=== PATIENT | female | born 1950 | race Caucasian/White ===

== ENCOUNTER → 2018-06-30 10:47 | Outpatient (BNVA) | payer MEDICARE, BC, SELFPAY | PROVIDERS: PCP Family Medicine; Referring Provider Family Medicine; Visit Provider Student in an Organized Health Care Education/Training Program | DX: M70.61 Trochanteric bursitis, right hip (principal); E11.9 Type 2 diabetes mellitus without complications; Z79.84 Long term (current) use of oral hypoglycemic drugs | CPT/HCPCS: 99203; 99214 ==

== ENCOUNTER → 2018-08-28 10:07 | Outpatient (BNVA) | payer MEDICARE, BC, SELFPAY | PROVIDERS: PCP Family Medicine; Referring Provider Family Medicine; Visit Provider Student in an Organized Health Care Education/Training Program | DX: M70.61 Trochanteric bursitis, right hip (principal); E11.9 Type 2 diabetes mellitus without complications; Z79.84 Long term (current) use of oral hypoglycemic drugs | CPT/HCPCS: 99213 ==

== ENCOUNTER 2018-09-20 09:40 | Outpatient (CLI) | payer MEDICARE, BC, SELFPAY ==
[2018-09-20 11:40] LABS: Hemoglobin A1C 6.4 % (4.5-6.2)
[2018-09-20 11:46] LABS: ALT 39 U/L (12-78); AST 25 U/L (15-37); Albumin 3.3 g/dL (3.4-5.0); Alkaline Phosphatase 45 U/L (46-116); Anion Gap 9.4 mmol/L (3-11); BUN 19 mg/dL (7-18); Bilirubin, Total 0.3 mg/dL (0.2-1.0); CO2 28.6 mmol/L (21.0-32.0); CREATININE 0.79 mg/dL (0.55-1.02); Calcium 8.6 mg/dL (8.5-10.1); Chloride 103 mmol/L (98-107); Glucose 122 mg/dL (70-100); Potassium 4.2 mmol/L (3.5-5.1); Sodium 141 mmol/L (136-145); TSH 1.11 uIU/mL (0.358-3.74); Total Protein 6.8 g/dL (6.4-8.2)
[2018-09-20 12:06] LABS: Iron 111 ug/dL (50-175); Total Iron Binding Capacity 298 ug/dL (250-450); Transferrin Sat 37 % (15-50)
== END 2018-09-20 10:00 ==
PROVIDERS: PCP Family Medicine; Visit Provider Family Medicine
DX: E03.9 Hypothyroidism, unspecified (principal); R53.83 Other fatigue; K21.9 Gastro-esophageal reflux disease without esophagitis; R73.9 Hyperglycemia, unspecified; K62.5 Hemorrhage of anus and rectum
CPT/HCPCS: 36415; 80053; 83036; 83540; 83550; 84443

== ENCOUNTER 2018-10-11 21:12 | Emergency (ER) | payer MEDICARE, BC, SELFPAY ==
[2018-10-11 21:18] VITALS: BP 158/74; PULSE 88; RESP 16; TEMP 36.6; O2SAT 97
[2018-10-11 21:22] VITALS: O2SAT 96
--- NOTE | 2018-10-11 21:30 | W.ED.GENAD ---
Discharge Plan Disposition Patient Disposition: HOME Condition: Stable Discharge Details Chief Complaint: GenMedical Clinical Impression: Headache Primary Care Provider: Sherri Mera ED Provider: Jose Angel Bolanos Home Meds and New Rx's Prescriptions: No Action omeprazole 20 mg capsule,delayed release(DR/EC) 20 mg PO DAILY Qty: 90 RF: 2 aspirin [Aspir-81] 81 MG tablet,delayed release (DR/EC) 81 mg PO DAILY RF: 0 Co Q-10 (with Vit E) 1 EACH capsule 1 ea PO DAILY RF: 0 omega-3 fatty acids-fish oil 1 EACH capsule PO BID RF: 0 [id number] 1 EACH tablet 1 ea PO DAILY RF: 0 calcium citrate-vitamin D3 1 EACH tablet 2 ea PO DAILY RF: 0 Blood-Glucose Meter [Blood Glucose Monitor] 1 EACH EACH 1 ea Miscellaneous ONCE Qty: 1 RF: 0 metformin 500 MG tablet 500 mg PO DAILY Qty: 90 RF: 4 pravastatin 20 MG tablet 20 mg PO DAILY Qty: 90 RF: 4 levothyroxine 50 MCG tablet 50 mcg PO DAILY Qty: 90 RF: 4 multivitamin with minerals [One Daily Complete] 1 EACH tablet 1 ea PO DAILY RF: 0 Blood Glucose Test strip 1 ea Miscellaneous DAILY Qty: 100 RF: 2 lancets 28 gauge misc 1 ea Miscellaneous DAILY Qty: 100 RF: 2 ibandronate 150 mg tablet 150 mg PO monthly Qty: 3 RF: 4 Discharge Instructions Instructions: General Headache (ED) Additional Instructions: your cat scan did not show any concerning finding you can take 1000mg tylenol and 600mg ibuprofen every 6 hours for pain as needed follow up with your primary care provider within 1-2 weeks if symptoms continue if you have severe worsening of pain that doesn't improve, or you have fevers with neck stiffness Medical Decision Making 68 yo female who denies hx of headaches or migraines comes in with headache. She was shoveling about 45 minutes ago when she had acute onset of frontal headache. It was a 45/10 on pain scale per pt, is now 2/10 without pain medication. Denies fevers, neck stiffness, weakness, vision changes, falls. She has no focal neuro deficits, CN II-XII are intact, NIH 0. normal palpation of eyes with no hardness so doubt glaucoma and eye appears normal. No temporal artery pain to suggest temporal arteritis. no fevers or meningismus so doubt meningitis. Given pain is within [address] head to eval for sah and sdh though could be tension headache given pain is now resolving pt remains pain free. CT negative. Given she is here within 6 hours do not feel LP to rule out SAH indicated. Will d/c and return precautions given Differential Diagnosis tension headache, sah, sdh Imaging Data Radiologic Study: Attestation: I personally reviewed and interpreted this imaging study as follows: Imaging: CT Scan Radiologist's impression: no acute findings HPI General Mode of arrival: ambulatory. Date/Time Provider Initiated Documentation: 10/11/18 21:25. Limitations to Documentation: no limitations. Information obtained by: patient. History of Present Illness 68 year old F presents to the emergency department with the chief complaint of headache, described as severe, with intensity rated at 10. Quality is described as sharp, and is localized to the head. Patient reports no radiation. Patient started experiencing this minute(s) (30) and it has been other (improving). No relieving factors improve symptom(s), No exacerbating factors reported . Patient notes no other symptoms.. Patient did receive the following treatments prior to arrival, none Related Data Home Medications Medication Instructions Recorded Confirmed aspirin [Aspir 81] 81 mg PO DAILY tab-cap 08/14/13 10/11/18 coenzyme [id number] E [Co Q-10 50 1 ea PO DAILY 08/14/13 10/11/18 Mg Softgel] [id number]-C-alfonso-bosw 1 ea PO DAILY 08/14/13 10/11/18 omega-3 fatty acids-fish oil 0 ea PO BID 08/14/13 10/11/18 calcium citrate-vitamin D3 2 ea PO DAILY 08/27/13 10/11/18 levothyroxine 50 mcg PO DAILY #90 tab-cap 08/18/17 10/11/18 metformin 500 mg PO DAILY #90 tab-cap 08/18/17 10/11/18 pravastatin 20 mg PO DAILY #90 tab-cap 08/18/17 10/11/18 multivitamin with minerals [One 1 ea PO DAILY 02/13/18 10/11/18 Daily Complete] blood sugar diagnostic strips #100 strip 11/05/18 12/26/18 lancets 28 gauge #100 ea 08/07/18 09/27/18 omeprazole 20 mg capsule,delayed 20 mg PO DAILY #90 cap 09/20/18 10/11/18 release ibandronate 150 mg tablet 150 mg PO monthly #3 tab-cap 10/09/18 10/11/18 Previous Rx's Medication Instructions Recorded levothyroxine 50 mcg PO DAILY #90 tab-cap 08/18/17 metformin 500 mg PO DAILY #90 tab-cap 08/18/17 pravastatin 20 mg PO DAILY #90 tab-cap 08/18/17 blood sugar diagnostic strips #100 strip 08/07/18 lancets 28 gauge #100 ea 08/07/18 omeprazole 20 mg capsule,delayed 20 mg PO DAILY #90 cap 09/20/18 release ibandronate 150 mg tablet 150 mg PO monthly #3 tab-cap 10/09/18 Allergies Allergy/AdvReac Type Severity Reaction Status Date / Time latex Allergy Intermediate Unverified 10/11/18 21:24 codeine AdvReac Unknown Unverified 10/11/18 21:24 pseudoephedrine AdvReac Unknown DIZZINESS; Unverified 10/11/18 21:24 LIGHTHEADEDNESS ANIMAL DANDER Allergy Intermediate Uncoded 10/11/18 21:24 General Stated Complaint: GenMedical LAVERN: 3 Review of Systems Review of Systems All systems reviewed & are unremarkable except as noted in HPI and below Constitutional Denies chills, Denies fever(s) and Denies weakness Eyes Denies loss of vision ENT Denies change in voice Cardiovascular Denies chest pain and Denies dyspnea Respiratory Denies dyspnea Gastrointestinal Denies abdominal pain, Denies nausea and Denies vomiting Musculoskeletal Denies joint swelling Integumentary/Breasts Denies rash Neurologic Denies loss of vision and Denies weakness Psychiatric Denies depression Endocrine Denies heat intolerance Allergic/Immunologic Denies urticaria [facility] Medical History Type 2 diabetes mellitus without complication, without long-term current use of insulin (Chronic 12/21/16) Osteoporosis (Chronic 12/21/16) Non-alcoholic fatty liver disease (Chronic 08/23/13) Hypothyroidism (Chronic 08/23/13) Generalized osteoarthritis (Chronic 08/23/13) Gastroesophageal reflux disease (Chronic 08/23/13) Asthma (Chronic) Surgical History Extraction of cataract Fracture, Closed Treatment (~07/2004) Family History FAMILY HX Neoplasm Mother Essential hypertension Heart disease Hyperlipidemia Neoplasm Father Essential hypertension Heart disease Hyperlipidemia Neoplasm Sister Essential hypertension Depression Hyperlipidemia Brother Depression Heart disease Hyperlipidemia Grandfather No problems noted. Grandfather Parkinson disease Grandmother Diabetes Heart disease Stroke Grandmother Diabetes Heart disease Social History Smoking/Tobacco Use Status: Never Exam Const General: no acute distress Orientation: alert HENMT Head: normal to inspection Ears: external ears normal General nose exam: external nose normal Mouth: moist mucous membranes Eyes General: appearance normal, both eyes and all related structures Neck Neck: normal visual inspection Resp Effort & Inspection: normal respiratory effort and able to speak in complete sentences Cardio Rate: regular rate Skin General skin exam: no rashes or lesions noted Neuro General: alert and oriented x3 Extrem General: normal to inspection Psych Mental Status: mental status grossly normal Course Vital Signs Temperature 36.6 C 10/11/18 21:18 Pulse 88 10/11/18 21:18 Respiratory Rate 16 10/11/18 21:18 Blood Pressure 158/74 H 10/11/18 21:18 Pulse Oximetry 97 10/11/18 21:18 Temperature 36.6 C 10/11/18 21:18 Temperature Source Skin 10/11/18 21:18 Pulse 88 10/11/18 21:18 Respiratory Rate 16 10/11/18 21:18 Respiratory Effort Non-Labored 10/11/18 21:21 Blood Pressure 158/74 H 10/11/18 21:18 Blood Pressure Position Sitting 10/11/18 21:18 Pulse Oximetry 97 10/11/18 21:18 Oxygen Delivery Method Room Air 10/11/18 21:18 Oxygen Flow Rate 0 10/11/18 21:18 Pain Level 3 10/11/18 21:18
[2018-10-11] MEDS: Acetaminophen 500 MG TAB 1000 MG PO (21:34)
--- NOTE | 2018-10-11 21:34 | ED.GENADUL_ITS ---
Discharge Plan Disposition Patient Disposition: HOME Condition: Stable Discharge Details Chief Complaint: GenMedical Clinical Impression: Headache Primary Care Provider: Sherri Mera ED Provider: Jose Angel Bolanos Home Meds and New Rx's Prescriptions: No Action omeprazole 20 mg capsule,delayed release(DR/EC) 20 mg PO DAILY Qty: 90 RF: 2 aspirin [Aspir-81] 81 MG tablet,delayed release (DR/EC) 81 mg PO DAILY RF: 0 Co Q-10 (with Vit E) 1 EACH capsule 1 ea PO DAILY RF: 0 omega-3 fatty acids-fish oil 1 EACH capsule PO BID RF: 0 [id number]-[id number]-C-alfonso-bosw 1 EACH tablet 1 ea PO DAILY RF: 0 calcium citrate-vitamin D3 1 EACH tablet 2 ea PO DAILY RF: 0 Blood-Glucose Meter [Blood Glucose Monitor] 1 EACH EACH 1 ea Miscellaneous ONCE Qty: 1 RF: 0 metformin 500 MG tablet 500 mg PO DAILY Qty: 90 RF: 4 pravastatin 20 MG tablet 20 mg PO DAILY Qty: 90 RF: 4 levothyroxine 50 MCG tablet 50 mcg PO DAILY Qty: 90 RF: 4 multivitamin with minerals [One Daily Complete] 1 EACH tablet 1 ea PO DAILY RF: 0 Blood Glucose Test strip 1 ea Miscellaneous DAILY Qty: 100 RF: 2 lancets 28 gauge misc 1 ea Miscellaneous DAILY Qty: 100 RF: 2 ibandronate 150 mg tablet 150 mg PO monthly Qty: 3 RF: 4 Discharge Instructions Instructions: General Headache (ED) Additional Instructions: your cat scan did not show any concerning finding you can take 1000mg tylenol and 600mg ibuprofen every 6 hours for pain as needed follow up with your primary care provider within 1-2 weeks if symptoms continue if you have severe worsening of pain that doesn't improve, or you have fevers with neck stiffness Medical Decision Making 68 yo female who denies hx of headaches or migraines comes in with headache. She was shoveling about 45 minutes ago when she had acute onset of frontal headache. It was a 45/10 on pain scale per pt, is now 2/10 without pain medication. Denies fevers, neck stiffness, weakness, vision changes, falls. She has no focal neuro deficits, CN II-XII are intact, NIH 0. normal palpation of eyes with no hardness so doubt glaucoma and eye appears normal. No temporal artery pain to suggest temporal arteritis. no fevers or meningismus so doubt meningitis. Given pain is within [address] head to eval for sah and sdh though could be tension headache given pain is now resolving pt remains pain free. CT negative. Given she is here within 6 hours do not feel LP to rule out SAH indicated. Will d/c and return precautions given Differential Diagnosis tension headache, sah, sdh Imaging Data Radiologic Study: Attestation: I personally reviewed and interpreted this imaging study as follows: Imaging: CT Scan Radiologist's impression: no acute findings HPI General Mode of arrival: ambulatory . Date/Time Provider Initiated Documentation: 10/11/18 21:25 . Limitations to Documentation: no limitations . Information obtained by: patient . History of Present Illness 68 year old F presents to the emergency department with the chief complaint of headache, described as severe, with intensity rated at 10. Quality is described as sharp, and is localized to the head. Patient reports no radiation. Patient started experiencing this minute(s) (30) and it has been other (improving). No relieving factors improve symptom(s), No exacerbating factors reported . Patient notes no other symptoms.. Patient did receive the following treatments prior to arrival, none Related Data Home Medications Medication Instructions Recorded Confirmed aspirin [Aspir 81] 81 mg PO DAILY tab-cap 08/14/13 10/11/18 coenzyme [id number] E [Co Q-10 50 1 ea PO DAILY 08/14/13 10/11/18 Mg Softgel] [id number]-[id number]-C-alfonso-bosw 1 ea PO DAILY 08/14/13 10/11/18 omega-3 fatty acids-fish oil 0 ea PO BID 08/14/13 10/11/18 calcium citrate-vitamin D3 2 ea PO DAILY 08/27/13 10/11/18 levothyroxine 50 mcg PO DAILY #90 tab-cap 08/18/17 10/11/18 metformin 500 mg PO DAILY #90 tab-cap 08/18/17 10/11/18 pravastatin 20 mg PO DAILY #90 tab-cap 08/18/17 10/11/18 multivitamin with minerals [One 1 ea PO DAILY 02/13/18 10/11/18 Daily Complete] blood sugar diagnostic strips #100 strip 11/05/18 12/26/18 lancets 28 gauge #100 ea 08/07/18 09/27/18 omeprazole 20 mg capsule,delayed 20 mg PO DAILY #90 cap 09/20/18 10/11/18 release ibandronate 150 mg tablet 150 mg PO monthly #3 tab-cap 10/09/18 10/11/18 Previous Rx's Medication Instructions Recorded levothyroxine 50 mcg PO DAILY #90 tab-cap 08/18/17 metformin 500 mg PO DAILY #90 tab-cap 08/18/17 pravastatin 20 mg PO DAILY #90 tab-cap 08/18/17 blood sugar diagnostic strips #100 strip 08/07/18 lancets 28 gauge #100 ea 08/07/18 omeprazole 20 mg capsule,delayed 20 mg PO DAILY #90 cap 09/20/18 release ibandronate 150 mg tablet 150 mg PO monthly #3 tab-cap 10/09/18 Allergies Allergy/AdvReac Type Severity Reaction Status Date / Time latex Allergy Intermediate Unverified 10/11/18 21:24 codeine AdvReac Unknown Unverified 10/11/18 21:24 pseudoephedrine AdvReac Unknown DIZZINESS; Unverified 10/11/18 21:24 LIGHTHEADEDNESS ANIMAL DANDER Allergy Intermediate Uncoded 10/11/18 21:24 General Stated Complaint: GenMedical LAVERN: 3 Review of Systems Review of Systems All systems reviewed & are unremarkable except as noted in HPI and below Constitutional Denies chills, Denies fever(s) and Denies weakness Eyes Denies loss of vision ENT Denies change in voice Cardiovascular Denies chest pain and Denies dyspnea Respiratory Denies dyspnea Gastrointestinal Denies abdominal pain, Denies nausea and Denies vomiting Musculoskeletal Denies joint swelling Integumentary/Breasts Denies rash Neurologic Denies loss of vision and Denies weakness Psychiatric Denies depression Endocrine Denies heat intolerance Allergic/Immunologic Denies urticaria [facility] Medical History Type 2 diabetes mellitus without complication, without long-term current use of insulin (Chronic 12/21/16) Osteoporosis (Chronic 12/21/16) Non-alcoholic fatty liver disease (Chronic 08/23/13) Hypothyroidism (Chronic 08/23/13) Generalized osteoarthritis (Chronic 08/23/13) Gastroesophageal reflux disease (Chronic 08/23/13) Asthma (Chronic) Surgical History Extraction of cataract Fracture, Closed Treatment (~07/2004) Family History FAMILY HX Neoplasm Mother Essential hypertension Heart disease Hyperlipidemia Neoplasm Father Essential hypertension Heart disease Hyperlipidemia Neoplasm Sister Essential hypertension Depression Hyperlipidemia Brother Depression Heart disease Hyperlipidemia Grandfather No problems noted. Grandfather Parkinson disease Grandmother Diabetes Heart disease Stroke Grandmother Diabetes Heart disease Social History Smoking/Tobacco Use Status: Never Exam Const General: no acute distress Orientation: alert HENMT Head: normal to inspection Ears: external ears normal General nose exam: external nose normal Mouth: moist mucous membranes Eyes General: appearance normal, both eyes and all related structures Neck Neck: normal visual inspection Resp Effort & Inspection: normal respiratory effort and able to speak in complete sentences Cardio Rate: regular rate Skin General skin exam: no rashes or lesions noted Neuro General: alert and oriented x3 Extrem General: normal to inspection Psych Mental Status: mental status grossly normal Course Vital Signs Temperature 36.6 C 10/11/18 21:18 Pulse 88 10/11/18 21:18 Respiratory Rate 16 10/11/18 21:18 Blood Pressure 158/74 H 10/11/18 21:18 Pulse Oximetry 97 10/11/18 21:18 Temperature 36.6 C 10/11/18 21:18 Temperature Source Skin 10/11/18 21:18 Pulse 88 10/11/18 21:18 Respiratory Rate 16 10/11/18 21:18 Respiratory Effort Non-Labored 10/11/18 21:21 Blood Pressure 158/74 H 10/11/18 21:18 Blood Pressure Position Sitting 10/11/18 21:18 Pulse Oximetry 97 10/11/18 21:18 Oxygen Delivery Method Room Air 10/11/18 21:18 Oxygen Flow Rate 0 10/11/18 21:18 Pain Level 3 10/11/18 21:18
--- NOTE | 2018-10-11 21:55 | DI.CT_ITS ---
SYMPTOMS/DIAGNOSIS: HEADACHE NONCONTRAST HEAD CT: No intracranial hemorrhage or skull fracture is seen. There is no evidence of mass or infarct. There is minimal atrophy. There are no visible white matter changes. The ventricles are normal in size. 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 The dens articulates with the inferior aspect of the clivus. There is no evidence of impression on the medulla or upper cervical cord. The sinuses and mastoid air cells appear clear. 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 No acute intracranial abnormality is seen.
[2018-10-11 21:56] VITALS: RESP 16
--- NOTE | 2018-10-11 22:26 | DI.VRAD_ITS ---
EXAM: CT Head Without Contrast EXAM DATE/TIME: 10/11/2018 9:30 PM CLINICAL HISTORY: 68 years old, female; Pain; Headache TECHNIQUE: Axial computed tomography images of the head/brain without contrast. Coronal and sagittal reformatted images were created and reviewed. COMPARISON: No relevant prior studies available. FINDINGS: Brain: No acute intracranial hemorrhage, mass-effect, midline shift, or extra-axial collection is seen. The blackwell white matter differentiation appears preserved. Ventricles: The ventricular system and basilar cisterns appear appropriate in size and configuration. Bones/joints: The bony calvarium appears intact. No depressed skull fracture is seen. There is variant anatomy at the occipitocervical junction. C1 appears to be largely fused to the skull base. 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 There is associated central canal narrowing at this level and mild deformity of the upper cervical cord, image 7 of series 2. Sinuses: The visualized paranasal sinuses appear clear. Mastoid air cells: The mastoid air cells appear clear. Auditory system: The middle ear cavities appear clear. Orbits: The globes and intraorbital structures appear grossly intact. Soft tissues: No significant scalp lesion is demonstrated. IMPRESSION: 1. No acute intracranial abnormality seen. 2. Unusual anatomy at the craniocervical junction with apparent fusion of the ring of C1 to the skull base, deformity of the odontoid process of C2, and central canal narrowing with mild deformity of the upper cervical cord. Dictated and Authenticated by: Hebert Johnson MD. Ordering:MORGAN Walter MD
[2018-10-11 22:41] VITALS: BP 145/82; PULSE 71; RESP 16; TEMP 36.7; O2SAT 96
[2018-10-11 22:48] VITALS: BP 145/82; PULSE 71; RESP 16; TEMP 36.7; O2SAT 96
== END 2018-10-11 22:47 | disposition home or self-care (01) ==
PROVIDERS: Emergency Provider Emergency Medicine; PCP Family Medicine
DX: R51 Headache (principal); E11.9 Type 2 diabetes mellitus without complications; Z79.84 Long term (current) use of oral hypoglycemic drugs
CPT/HCPCS: 99284; 70450

== ENCOUNTER 2019-02-09 08:53 | Outpatient (CLI) | payer MEDICARE, BC, SELFPAY ==
[2019-02-09 10:42] LABS: ALT 34 U/L (12-78); AST 24 U/L (15-37); Albumin 3.2 g/dL (3.4-5.0); Alkaline Phosphatase 50 U/L (46-116); Anion Gap 9.9 mmol/L (3-11); BUN 15 mg/dL (7-18); Bilirubin, Total 0.5 mg/dL (0.2-1.0); CO2 27.1 mmol/L (21.0-32.0); CREATININE 0.74 mg/dL (0.55-1.02); Calcium 8.3 mg/dL (8.5-10.1); Chloride 107 mmol/L (98-107); Glucose 112 mg/dL (70-100); Potassium 4.3 mmol/L (3.5-5.1); Sodium 144 mmol/L (136-145); Total Protein 6.7 g/dL (6.4-8.2)
[2019-02-09 10:47] LABS: Microalb ug/mg Crea 6.4 ug/mg Cr
[2019-02-09 11:01] LABS: Hemoglobin A1C 6.4 % (4.5-6.2)
== END 2019-02-09 09:13 ==
PROVIDERS: PCP Family Medicine; Visit Provider Family Medicine
DX: E11.9 Type 2 diabetes mellitus without complications (principal)
CPT/HCPCS: 36415; 80053; 82043; 82570; 83036

== ENCOUNTER 2019-07-11 09:38 | Outpatient (CLI) | payer MEDICARE, BC, SELFPAY ==
--- NOTE | 2019-07-11 09:00 | DI.RAD_ITS ---
EXAM: XR CHEST 2V PA LATERAL INDICATION: dyspnea R06.00. COMPARISON: CHEST 2 VIEWS PA,LAT from 07/12/2014 TECHNIQUE: 2D digital imaging was performed. FINDINGS: The lungs are well expanded and free of infiltrate. There is no pleural effusion. Heart is not enla rged. The hilar structures, mediastinum and tracheal air column are intact. There has been no apparen t interval change when compared with images dating back to 07/12/2014. IMPRESSION: No evidence of acute cardiopulmonary disease.
== END 2019-07-11 09:58 ==
PROVIDERS: PCP Family Medicine; Visit Provider Family Medicine
DX: R06.09 Other forms of dyspnea (principal)
CPT/HCPCS: 71046

== ENCOUNTER 2019-09-11 07:40 | Outpatient (CLI) | payer MEDICARE, BC, SELFPAY ==
[2019-09-11 11:22] LABS: Hemoglobin A1C 6.5 % (4.5-6.2)
[2019-09-11 12:06] LABS: ALT 42 U/L (14-59); AST 25 U/L (15-37); Albumin 3.3 g/dL (3.4-5.0); Alkaline Phosphatase 57 U/L (46-116); Anion Gap 8.5 mmol/L (3-11); BUN 20 mg/dL (7-18); Bilirubin, Total 0.3 mg/dL (0.2-1.0); CO2 28.5 mmol/L (21.0-32.0); CREATININE 0.76 mg/dL (0.55-1.02); Calcium 9.1 mg/dL (8.5-10.1); Chloride 105 mmol/L (98-107); Glucose 114 mg/dL (74-106); Potassium 4.3 mmol/L (3.5-5.1); Sodium 142 mmol/L (136-145); Total Protein 6.6 g/dL (6.4-8.2); Vitamin B12 647 pg/mL (193-986)
== END 2019-09-11 08:00 ==
PROVIDERS: PCP Family Medicine; Visit Provider Family Medicine
DX: E11.9 Type 2 diabetes mellitus without complications (principal)
CPT/HCPCS: 36415; 80053; 82607; 83036

== ENCOUNTER 2020-03-28 08:16 | Outpatient (CLI) | payer MEDICARE, BC, SELFPAY ==
[2020-03-31 20:42] LABS: SARS-CoV-2 RNA Undetected (Undetected); SARS-CoV-2 Specimen Source Nasopharynx
== END 2020-03-28 08:36 ==
PROVIDERS: PCP Family Medicine; Visit Provider Family Medicine
DX: Z03.818 Encounter for observation for suspected exposure to other biological agents ruled out (principal)
CPT/HCPCS: U0003

== ENCOUNTER 2020-04-03 02:15 | Outpatient (CLI) | payer MEDICARE, BC, SELFPAY ==
[2020-04-03 07:41] LABS: Abs Immature Grans 0.01 k/cumm (0.0-0.09); Absolute Basophil Count 0.03 k/cumm (0.0-0.2); Absolute Eosinophil Count 0.12 k/cumm (0.0-0.7); Absolute Monocyte Count 0.56 k/cumm (0.11-0.7); Absolute Neutrophil Count 2.95 k/cumm (1.2-6.7); Basophils % 0.5; Eosinophils % 2.1; HCT 42.2 % (36.0-46.0); HGB 13.9 g/dL (12.0-15.5); Immature Grans % 0.2 %; Lymphocytes % 36.4; Mean Corp. HGB Concentration 32.9 g/dL (32.0-36.0); Mean Corpuscular Hemoglobin 29.8 pg (27.0-33.0); Mean Corpuscular Volume 90.4 fL (80-95); Monocytes % 9.7; Neutrophils % 51.1; Platelet Count 179 x1000/uL (130-400); RBC 4.67 m/cumm (4.00-5.20); RBC Distribution Width 13.1 % (11.7-14.6); White Blood Cell Count 5.77 k/cumm (4.4-10.8)
[2020-04-03 07:49] LABS: Hemoglobin A1C 6.2 % (3.8-5.6)
[2020-04-03 08:52] LABS: COMMENT (LAB VIEW ONLY) 214.47 mg/dL; Microalb ug/mg Crea 4.6 ug/mg Cr
[2020-04-03 08:52] LABS: ALT 26 U/L (14-59); AST 24 U/L (15-37); Albumin 3.9 g/dL (3.4-5.0); Alkaline Phosphatase 60 U/L (46-116); Anion Gap 8.8 mmol/L (3-11); BUN 14 mg/dL (7-18); Bilirubin, Total 0.4 mg/dL (0.2-1.0); CO2 27.2 mmol/L (21.0-32.0); Calcium 9.1 mg/dL (8.5-10.1); Calculated LDL 77 mg/dL (<100); Chloride 105 mmol/L (98-107); Cholesterol 153 mg/dL (<200); Glucose 118 mg/dL (74-106); HDL Cholesterol 52 mg/dL (40-60); Potassium 4.4 mmol/L (3.5-5.1); Sodium 141 mmol/L (136-145); Total Protein 7.1 g/dL (6.4-8.2); Triglyceride 121 mg/dL (<150)
[2020-04-03 10:03] LABS: ESR 15 mm/hr (0-30)
== END 2020-04-03 02:35 ==
PROVIDERS: PCP Family Medicine; Visit Provider Family Medicine
DX: E11.9 Type 2 diabetes mellitus without complications (principal); R91.1 Solitary pulmonary nodule
CPT/HCPCS: 36415; 80053; 80061; 85652; 82043; 82570; 83036; 85025

== ENCOUNTER 2020-04-22 01:18 | Outpatient (CLI) | payer MEDICARE, BC, SELFPAY ==
--- NOTE | 2020-04-22 08:30 | DI.CT_ITS ---
EXAM: CT CHEST WO CLINICAL HISTORY: F/U ABNL CHEST IMAGING, R93.89,F/U ELADIA INFILTRATE AND SMALL LT PLEURAL. TECHNIQUE: Imaging protocol: Axial computed tomography images were obtained and coronal and sagittal reformatted images were created and reviewed. COMPARISON: CT ABD PELVIS WITH CONTRAST from 08/20/[address] ABDOMEN AND PELVIS W CONT from 03/01/2020 CT CHEST W from 03/05/2020 FINDINGS: Tracheobronchial tree: Patent where visualized. Mediastinum and [place]: No dominant adenopathy or fluid collection. Pulmonary parenchyma: There is a 6.6 mm noncalcified pulmonary nodule in the left lower lobe medially . The left basilar infiltrate has resolved. Mild dependent atelectatic changes are seen in the lung bases. The left lingular infiltrate has significantly improved compared to the prior examination. No architectural distortion. Pleura: The left pleural effusion has completely resolved. No right pleural effusion is present. Th ere is no pneumothorax. Heart: The heart is not dilated. No coronary artery calcifications are seen. No pericardial effusion. Aorta: Thoracic aorta non-dilated. Atherosclerosis. Upper abdomen: Unremarkable. Lymph nodes: Within normal limits. Bones:Degenerative changes are seen in the spine. Soft tissues: Unremarkable. IMPRESSION: 1. Resolution of the left pleural effusion and left lower lobe infiltrate. 2. Near complete resolution of the left lingular infiltrate. 3. 6.6 mm left lower lobe pulmonary nodule. This was present on the CT scan of the abdomen and pelvi s from 08/20/2011 at which time it measured 6 mm. RADIATION DOSE DELIVERED: Total DLP Total DLP DATA REPOSITORY: All CT scans at this facility are submitted to the National Radiology Data Registry (NRDR) Dose Index Registry (DIR) with the [employer] (A[employer]). RADIATION OPTIMIZATION: All CT scans at this facility use at least one of these dose optimization te chniques: automated exposure control; mA and/or kV adjustment per patient size (includes targeted exa ms where dose is matched to clinical indication); or iterative reconstruction.
== END 2020-04-22 01:38 ==
PROVIDERS: PCP Family Medicine; Visit Provider Internal Medicine
DX: R93.89 Abnormal findings on diagnostic imaging of other specified body structures (principal); R91.1 Solitary pulmonary nodule; I70.0 Atherosclerosis of aorta; M47.9 Spondylosis, unspecified; R91.8 Other nonspecific abnormal finding of lung field
CPT/HCPCS: 71250

== ENCOUNTER 2020-07-14 01:57 | Outpatient (CLI) | payer MEDICARE, BC, SELFPAY ==
[2020-07-14 08:48] LABS: TSH 1.82 uIU/mL (0.36-3.74)
== END 2020-07-14 02:17 ==
PROVIDERS: PCP Family Medicine; Visit Provider Family Medicine
DX: E03.9 Hypothyroidism, unspecified (principal)
CPT/HCPCS: 36415; 84443

== ENCOUNTER 2020-10-08 04:02 | Outpatient (CLI) | payer MEDICARE, BC, SELFPAY ==
[2020-10-09 21:13] LABS: COVID-19 RT-PCR UVMMC Result Negative (Negative)
== END 2020-10-08 04:22 ==
PROVIDERS: PCP Family Medicine; Visit Provider Family Medicine
DX: Z20.828 Contact with and (suspected) exposure to other viral communicable diseases (principal)
CPT/HCPCS: U0003

== ENCOUNTER 2021-01-30 15:30 | Outpatient (CLI) | payer MEDICARE, BC, SELFPAY ==
--- NOTE | 2021-01-30 09:15 | DI.RAD_ITS ---
Exam(s) XR SHOULDER RT COMPLETE 2+V EXAM: XR SHOULDER RT COMPLETE 2+V CLINICAL HISTORY: nodule/ cyst/ vs fx, shoulder pain rt, M25.511. TECHNIQUE: 2D digital imaging was performed. COMPARISON: No exams were available for comparison FINDINGS: BONES: No acute fracture is present. No bony destructive lesion is seen. JOINTS: No dislocation present. Mild degenerative changes are seen at the acromioclavicular joint. T here is a soft tissue calcification adjacent to the greater tuberosity which may reflect calcific ten dinitis. SOFT TISSUE: Normal. IMPRESSION: 1. No acute fracture or dislocation. 2. Mild degenerative changes of the right shoulder. DATA REPOSITORY: RADIATION DOSE DELIVERED:
--- OUTSIDE RECORDS SUMMARY | 2021-01-30 15:32 | XMS_ITS | Encounter Summary ---
:1950 Author Care Team Providers Name Role Phone Sherri Mera ([facility]) Primary Care Provider [phone] [facility] Medical Records Primary Care Provider [phone] [facility] OTHER [phone] Moraima Borges MD Water Jet Operator [phone] Reason for Visit None recorded. Assessment and Plan 1. Obstructive sleep apnea syndr ome TRACEY diagnosed in 2012 with an AHI of 15.9/hr. She had initially tried and failed CPAP and an oral appliance. She now uses BiPAP Imax 17 cm, Hira 7 cm, PS 4 cm. She has excellent compliance and reduction in AHI. Her mask is leaking a lot of air now that she has lost some weight secondary to stress. She uses an Airtouch F20 size small. Today I gave her a Simplus size small to try. I recommende d she get a mask liner from [facility] to help with any persistent air leaking. I also sent in an order for a new mask fit in the event the Simplus is not working for her. She is encouraged to keep up wi th the routine maintenance of the chapin e and to clean and replace parts as indicated. I will see her back in two years. She is asked to call the clinic for any sleep related questions or concerns. I provided greater than 30 minutes in th e care of this patient, more than half the time was spent in [id number]-[id number] counseling. ? CPAP supplies Discussion Note: None recorded.Patient educational handouts: No information available. Plan of Care Reminders Provider Appointments Return to on or around Eric Chapman, Office 01/27/2023 PUBLIC RECORDS OFFICER Lab None ? ? recorded. Referral None ? ? recorded. Procedures None ? ? recorded. Surgeries None ? ? recorded. Imaging None ? ? recorded. Medications Name Start Date ? ? alendronate 70 mg tablet ? Take 1 tablet every week by oral route. aspirin ? 81mg daily Breo Ellipta 100 mcg-25 mcg/dose powder for inhalation ? Inhale 1 puff every day by inhalation route. calcium citrate ? 630mg plus vitamin D 500mg fiber ? 2 t daily FreeStyle Lancets 28 gauge ? FreeStyle Lite Meter kit ? FreeStyle Lite Strips ? levothyroxine 50 mcg tablet ? metformin ? 500mg daily minocycline 50 mg capsule ? Take 1 capsule by oral route. multivitamin ? daily Osteo Bi-Flex ? daily pravastatin 20 mg tablet ? ProAir HFA ? 2 puffs PRN Vitamin D3 ? 2000mg daily Medications Administered None recorded. Vitals Height Weight BMI Blood Pressure 5 ft 2.5 in 139.4 lbs 25.1 kg/m2 88/47 mm[Hg] Results Lab Results None recorded. Allergies Code Code System Name Reaction Severity Onset Animal Dander ? ? ? 2670 RxNorm Codeine ? ? ? 7470940 RxNorm Latex ? ? ? 8896 RxNorm Pseudoephedrine ? ? ? Sulfa (Sulfonamide Rash ? ? Antibiotics) Problems Name Status Onset Date Source ? Tomography - Chest Abnormal Active 04/18/2020 ? Obstructive Sleep Apnea Syndrome Active ? History Notes: AHI 15/h in 2012, current ly on auto BiPAP with IMAX of 17, E minimum of 7, pressure support of 4. Procedures None recorded. Vaccine List Vaccine Type influenza, injectable, quadrivalent 08/03/2017 08/02/2019 influenza, trivalent, adjuvanted 07/26/2018 pneumococcal conjugate PCV 13 08/19/2018 pneumococcal polysaccharide PPV23 08/18/2017 Social History Tobacco Smoking Status Never Smoker Alcohol intake None Exposure to Asbestos N Exposure to Chemicals or Toxins N Live alone or with others? with others Tobacco Use Never a smoker Blind or serious difficulty seeing N Not es: wears glasses, vision corrected Language Difficulties No Notes: colombian is primary language Deaf or serious difficulty hearing N Chewing tobacco none Most Recent Tobacco Use Screening 03/28/2019 Advance directive Y Caffeine intake Occasional Notes: 1 cup of c offee decaf Drug Use N Exposure to Silica N Family History Relation Problem Onset Age of Age Notes Sister Sleep apnea (No Information) N/A (No Notes) Father Heart disease (No Information) N/A (No Notes) Functional Status No Impairment. Past Encounters 01/27/2021 Obstructive Sleep Apnea Syndrome Sandi Chapman NP: [address] [place], [place] [address], [place] [phone], Ph. History of Present Illness Note: <p>Margarita Saha has a visit for TRACEY follow-up.</p><p>
</p><p>Margarita was last seen by me 03/28/19. She had a PSG at [facility] 10/04/2012 with an AHIof 15.9/hr, PLM index 2.3/hr, PLM arousal index 0.1/hr. Titration study the next night was titrated from 4 to 12 cm H20, there is no interpretation found to say what the optimal pressure was. She initially tried a CPAP with poor tolerance. She then tried and failed an oral appliance due to discomfort and teeth moving. She was started back on CPAP 6-16 cm and when I first saw her was not tolerating CPAP as she found the pressures to be excessive even though download data indicated she needed a higherpressure. She was changed over to BiPAP 16/7/4 cm. At her last visit with Dr. Borges 04/18/20 shewas using BiPAP 17/7/4 cm with great compliance. She failed Biotene for dry mouth and Xylimelts wererecommended at that time.</p><p>
</p><p>Margarita tells me she has been stressed and busy taking care of her sister and has dropped 10 lbs in the past six weeks and now her mask is leaking all of the time. She got a new headgear recently and changes the cushion every month or so. Her sleep is much more restless since she has been taking care of her sister. She is using an Airtouch F20 size small. It causes irritation to the bridge of her nose leaving vega. She is sleeping about 10-11 pm until 7 am. </p><p>
</p><p>
</p>&l t;p>
</p><p>ESS today 11/26</p><p>
</p><p>COMPLIANCE REVIEW: {{-01/25/21# DATES}}, Used {{30# 25 30}}/30 days, average use {{8# 5 6}} hours {{29# number}} minutes a night, 95 th percentile IPAP pressure {{16.1# 8 9}}cm, 90 th percentile EPAP pressure {{12.1# 9 10}}cm, 95 th percentile air leak {{8.3# 5 10}} lpm, AHI {{2.4# 1 2}}/hour.</p> Review of Systems: ROS as noted in the HPI Review of Systems None recorded. Physical Exam ? Notes: <p>General: A&O, well groome d {{over weight obese morbidly obese normal weight * thin}}.
HEAD: n ormocephalic & atraumatic.
EYES: non icteric.
LUNGS: CTA all f ields. Good air movement.
CARDIO: RRR without murmur, gallop or thrill.
NEURO: A&O. Normal gait.
PSYCH: Normal mood and affect.
CUTANEOUS: no overt lesions or rashes</p>
--- OUTSIDE RECORDS SUMMARY | 2021-01-30 15:32 | XMS_ITS ---
:1950 Author Care Team Providers Name Role Phone MORAIMA BORGES MD Data Operations Leader [phone] KHADIJAH ATKINS ([facility]) Primary Care Provider [phone] [facility] MEDICAL RECORDS Primary Care Provider [phone] [facility] OTHER [phone] Allergies Code Code System Name Reaction Severity Status Onset Animal Dander ? ? Active ? 2670 RxNorm Codeine ? ? Active ? 2495077 RxNorm Latex ? ? Active ? 8896 RxNorm Pseudoephedrine ? ? Active ? Sulfa (Sulfonamide Rash ? Active ? Antibiotics) Medications Name Status Start Date Stop Date ? ? alendronate 70 mg tablet Active ? Not mikie ilable Take 1 tablet every week by oral route. aspirin Active ? Not available 81mg daily Breo Ellipta 100 mcg-25 mcg/dose powder for inhalation Active ? Not available Inhale 1 puff every day by inhalation route. calcium citrate Active ? Not available 630mg plus vitamin D 500mg Co Q-10 Completed ? 09/18/2019 100mg daily fiber Active ? Not available 2 t daily FreeStyle Lancets 28 gauge Active ? Not a vailable FreeStyle Lite Meter kit Active ? Not mikie ilable FreeStyle Lite Strips Active ? Not availa ble ibandronate 150 mg tablet Completed ? 2018 monthly levothyroxine 50 mcg tablet Active ? Not available metformin Active ? Not available 500mg daily metformin 500 mg tablet Completed ? 06/15/20 18 metronidazole 0.75 % topical Completed ? gel minocycline 50 mg capsule Active ? Not av ailable Take 1 capsule by oral route. multivitamin Active ? Not available daily Osteo Bi-Flex Active ? Not available daily pravastatin 20 mg tablet Active ? Not mikie ilable ProAir HFA Active ? Not available 2 puffs PRN Provigil 200 mg tablet Completed 04/09/2013 4 1 Tablet: qam and q noon ranitidine 300 mg capsule Completed ? 2016 risedronate 150 mg tablet Completed ? 2018 selenium sulfide 2.5 % lotion Completed ? Shingrix (PF) 50 mcg/0.5 mL Completed ? 03/04 intramuscular suspension, kit Vitamin D3 Active ? Not available 2000mg daily Problems Name Status Onset Date Source ? Tomography - Chest Abnormal Active 04/18/2020 ? Obstructive Sleep Apnea Syndrome Active ? History Notes: AHI 15/h in 2012, current ly on auto BiPAP with IMAX of 17, E minimum of 7, pressure support of 4. Procedures Date Name Performed by ? 04/18/2020 CT, Chest, W/o Contrast [facility] (Radiology) [address] [place] [address] [place] [address] (Work Place) Results Lab Results None recorded. Past Encounters 01/27/2021 Obstructive Sleep Apnea Syndrome Sandi Chapman, MINOR LEAGUE BASEBALL PLAYER: [address] [place] [phone], Ph. 04/18/2020 Tomography - Chest Abnormal; Obstructive Sleep Apnea Syndrome Moraima Borges MD: [address] [place] [address] Dr sanjay Tian [address] [place] [phone], Ph. 09/18/2019 Obstructive Sleep Apnea Syndrome Moraima Borges MD: [address] [place] [address] Dr sanjay Tian [address] [place] [phone], Ph. Social History Tobacco Smoking Status Never Smoker Vaccine List Vaccine Type influenza, injectable, quadrivalent 08/03/2017 08/02/2019 influenza, trivalent, adjuvanted 07/26/2018 pneumococcal conjugate PCV 13 08/19/2018 pneumococcal polysaccharide PPV23 08/18/2017 Plan of Care Reminders Provider Appointments None ? ? recorded. Lab None ? ? recorded. Referral None ? ? recorded. Procedures None ? ? recorded. Surgeries None ? ? recorded. Imaging None ? ? recorded. Vitals 01/27/2021 01:00PM Office 30 Height Weight BMI Blood Pressure 158.75 cm 63.23 kg 25.1 kg/m2 88/47 mm[Hg] 04/18/2020 09:15AM Office 15 Height Weight BMI Blood Pressure 158.75 cm 67.65 kg 26.8 kg/m2 110/64 mm[Hg] 09/18/2019 01:00PM Office 30 Height Weight BMI Blood Pressure 158.75 cm 70.7 kg 28.1 kg/m2 118/72 mm[Hg] 06/01/2019 10:30AM Office 30 Height Weight BMI Blood Pressure 158.75 cm 71.1 kg 28.2 kg/m2 104/70 mm[Hg] 03/28/2019 11:30AM Office 30 Height Weight BMI Blood Pressure 158.75 cm 71.67 kg 28.4 kg/m2 124/78 mm[Hg] 08/22/2018 09:30AM Office 30 Height Weight BMI Blood Pressure 158.75 cm 72.2 kg 28.6 kg/m2 118/70 mm[Hg] 06/15/2018 08:30AM Office 30 Height Weight BMI Blood Pressure 158.75 cm 73.03 kg 29 kg/m2 100/70 mm[Hg] 02/17/2018 09:30AM Office 30 Height Weight BMI Blood Pressure 158.75 cm 70.76 kg 28.1 kg/m2 120/72 mm[Hg] 10/07/2017 Height Weight Blood Pressure 158.75 cm 68.63 kg 128/80 mm[Hg] 09/16/2017 Height Weight Blood Pressure 158.75 cm 68.72 kg 122/80 mm[Hg] 05/19/2017 Height Weight Blood Pressure 158.75 cm 64.64 kg 122/80 mm[Hg] 05/06/2017 Height Weight Blood Pressure 158.75 cm 65.49 kg 120/80 mm[Hg] 02/18/2017 Weight Blood Pressure 67.25 kg 110/70 mm[Hg] 06/02/2016 Height Weight Blood Pressure 158.75 cm 75.89 kg 116/60 mm[Hg] 03/14/2015 Height Weight Blood Pressure 158.75 cm 76.72 kg 100/60 mm[Hg] 04/19/2014 Height Weight Blood Pressure 158.75 cm 78.02 kg 120/74 mm[Hg] 08/06/2013 Height Weight Blood Pressure 158.75 cm 78.95 kg 120/78 mm[Hg] 04/09/2013 Height Weight Blood Pressure 158.75 cm 76.34 kg (1) 136/72 mm[Hg] (2) 115/60 mm[Hg]
== END 2021-01-30 15:50 ==
PROVIDERS: PCP Family Medicine; Visit Provider Nurse Practitioner
DX: M25.511 Pain in right shoulder (principal); M19.011 Primary osteoarthritis, right shoulder; M75.31 Calcific tendinitis of right shoulder
CPT/HCPCS: 73030

== ENCOUNTER 2021-02-24 02:30 | Outpatient (CLI) | payer MEDICARE, BC, SELFPAY ==
--- NOTE | 2021-02-24 09:17 | DI.RAD_ITS ---
Exam(s) XR CHEST 2V PA LATERAL EXAM: XR CHEST 2V PA LATERAL CLINICAL HISTORY: recent abnormal chest xray,ABNL WT LOSS, PULMONARY NODULE,R63.4,R91.1 TECHNIQUE: 2D digital imaging was performed. COMPARISON: CT CT CHEST WO from 04/22/2020 FINDINGS: MEDIASTINUM: Normal. HEART: Normal. PULMONARY VASCULATURE: Normal. LUNGS: Clear. No infiltrate or pulmonary nodule visible. PLEURAL SPACE: No pleural effusion or pneumothorax. BONE:Degenerative disc changes. No compression fracture. OTHER FINDINGS:Normal. IMPRESSION: No acute pulmonary findings. DATA REPOSITORY: RADIATION DOSE DELIVERED:
[2021-02-24 09:45] LABS: Abs Immature Grans 0.01 10^3/uL (0.0-0.06); Absolute Basophil Count 0.04 10^3/uL (0.0-0.2); Absolute Eosinophil Count 0.07 10^3/uL (0.0-0.7); Absolute Monocyte Count 0.52 10^3/uL (0.1-0.8); Absolute Neutrophil Count 3.39 10^3/uL (1.2-6.7); Basophils % 0.7; Eosinophils % 1.1; HCT 39.4 % (36.0-46.0); HGB 12.9 g/dL (11.2-15.7); Immature Grans % 0.2; Lymphocytes % 34.3; MCH 29.8 pg (27.0-33.0); MCHC 32.7 % (32.0-36.0); MPV 10.8 fL (8.0-11.0); Monocytes % 8.5; Neutrophils % 55.2; Nucleated RBC 0 %; Platelet Count 164 10^3/uL (130-400); RBC 4.33 10^6/uL (3.93-5.22); RDW 12.5 % (11.7-14.6); WBC 6.13 10^3/uL (4.4-10.8)
[2021-02-24 09:47] LABS: Bilirubin Negative (Negative); Blood Negative (Negative); Clarity Clear (Clear); Glucose Negative (Negative); Ketones Negative (Negative); Leukocyte Esterase Negative (Negative); Nitrite Negative (Negative); Urobilinogen 0.2 EU/dL (Up TO 0.2)
[2021-02-24 11:04] LABS: ALT 37 U/L (14-59); AST 29 U/L (15-37); Albumin 3.4 g/dL (3.4-5.0); Alkaline Phosphatase 65 U/L (46-116); Anion Gap 5.8 mmol/L (3-11); BUN 15 mg/dL (7-18); Bilirubin, Total 0.4 mg/dL (0.2-1.0); C-Reactive Protein 0.17 mg/dL (0.0-0.3); CO2 30.2 mmol/L (21.0-32.0); CREATININE 0.8 mg/dL (0.55-1.02); Calcium 8.5 mg/dL (8.5-10.1); Chloride 106 mmol/L (98-107); Glucose 112 mg/dL (74-106); Potassium 4.1 mmol/L (3.5-5.1); Sodium 142 mmol/L (136-145); TSH 1.35 uIU/mL (0.36-3.74); Total Protein 6.7 g/dL (6.4-8.2)
== END 2021-02-24 02:50 ==
PROVIDERS: PCP Family Medicine; Visit Provider Emergency Medicine
DX: R91.1 Solitary pulmonary nodule (principal); R63.4 Abnormal weight loss; E03.9 Hypothyroidism, unspecified; Z01.30 Encounter for examination of blood pressure without abnormal findings; R30.0 Dysuria; E11.9 Type 2 diabetes mellitus without complications; Z79.4 Long term (current) use of insulin
CPT/HCPCS: 36415; 80053; 71046; 81003; 84443; 85025; 86140

== ENCOUNTER 2021-04-23 03:13 | Outpatient (CLI) | payer MEDICARE, BC, SELFPAY ==
[2021-04-23 13:06] LABS: Hemoglobin A1C 6.4 % (<5.7)
[2021-04-23 13:31] LABS: ALT 36 U/L (14-59); AST 34 U/L (15-37); Albumin 3.5 g/dL (3.4-5.0); Alkaline Phosphatase 52 U/L (46-116); BUN 22 mg/dL (7-18); Bilirubin, Total 0.3 mg/dL (0.2-1.0); CREATININE 0.7 mg/dL (0.55-1.02); Calcium 8.5 mg/dL (8.5-10.1); Chloride 104 mmol/L (98-107); Glucose 106 mg/dL (74-106); Magnesium 2.1 mg/dL (1.8-2.4); Potassium 4.3 mmol/L (3.5-5.1); Sodium 141 mmol/L (136-145); Total Protein 6.6 g/dL (6.4-8.2); Vitamin B12 775 pg/mL (193-986)
[2021-04-23 13:34] LABS: Microalb ug/mg Crea 3.4 ug/mg Cr
== END 2021-04-23 03:14 | disposition home or self-care (01) ==
LOC: LOS 03:13
PROVIDERS: PCP Family Medicine; Visit Provider Family Medicine
DX: E11.9 Type 2 diabetes mellitus without complications (principal); E53.8 Deficiency of other specified B group vitamins; E83.42 Hypomagnesemia
CPT/HCPCS: 36415; 80053; 82043; 82570; 82607; 83036; 83735

== ENCOUNTER 2021-05-27 10:35 | Outpatient (CLI) | payer MEDICARE, BC, SELFPAY ==
[2021-05-27 12:42] LABS: Abs Immature Grans 0.01 10^3/uL (0.0-0.06); Absolute Basophil Count 0.04 10^3/uL (0.0-0.2); Absolute Lymphocyte Count 2.02 10^3/uL (1.2-3.4); Absolute Monocyte Count 0.54 10^3/uL (0.1-0.8); Absolute Neutrophil Count 3.69 10^3/uL (1.2-6.7); Basophils % 0.6; Eosinophils % 1.6; HCT 41.3 % (36.0-46.0); HGB 13.4 g/dL (11.2-15.7); Immature Grans % 0.2; Lymphocytes % 31.6; MCH 29.3 pg (27.0-33.0); MCHC 32.4 % (32.0-36.0); MCV 90.2 fL (80-95); Monocytes % 8.4; Neutrophils % 57.6; Nucleated RBC 0 %; Platelet Count 198 10^3/uL (130-400); RBC 4.58 10^6/uL (3.93-5.22); RDW 12.4 % (11.7-14.6)
[2021-05-27 12:51] LABS: ESR 9 mm/hr (0-30)
[2021-05-27 12:56] LABS: Iron 86 ug/dL (50-170); Total Iron Binding Capacity 296 ug/dL (250-450); Transferrin Sat 29 % (15-50)
[2021-05-27 13:07] LABS: Ferritin 158 ng/mL (8-252)
== END 2021-05-27 10:36 | disposition home or self-care (01) ==
LOC: LOS 10:37
PROVIDERS: PCP Family Medicine; Referring Provider Family Medicine; Visit Provider Family Medicine
DX: K76.0 Fatty (change of) liver, not elsewhere classified (principal); K62.5 Hemorrhage of anus and rectum; R63.4 Abnormal weight loss
CPT/HCPCS: 36415; 85652; 82728; 83540; 83550; 85025

== ENCOUNTER → 2021-06-26 10:48 | Outpatient (BNVA) | payer MEDICARE, BC, SELFPAY | PROVIDERS: PCP Family Medicine; Referring Provider Family Medicine; Visit Provider Surgery | DX: K62.5 Hemorrhage of anus and rectum (principal); R63.4 Abnormal weight loss | CPT/HCPCS: 99202; 99213 ==

== ENCOUNTER 2021-07-27 02:02 | Outpatient (CLI) | payer MEDICARE, BC, SELFPAY ==
[2021-07-27 11:22] LABS: Source Nasal/Nares
[2021-07-27 14:48] LABS: COVID-19 PCR Negative (Negative)
== END 2021-07-27 02:03 | disposition home or self-care (01) ==
LOC: LBO 02:02
PROVIDERS: PCP Family Medicine; Visit Provider Surgery
DX: Z20.822 Contact with and (suspected) exposure to COVID-19 (principal); Z01.818 Encounter for other preprocedural examination
CPT/HCPCS: 87635

== ENCOUNTER 2021-08-03 02:24 | Outpatient (CLI) | payer MEDICARE, BC, SELFPAY ==
[2021-08-03 11:35] LABS: Source Nasal/Nares
[2021-08-03 16:27] LABS: COVID-19 PCR Negative (Negative)
== END 2021-08-03 02:25 | disposition home or self-care (01) ==
PROVIDERS: PCP Family Medicine; Visit Provider Surgery
DX: Z20.822 Contact with and (suspected) exposure to COVID-19 (principal)
CPT/HCPCS: 87635

== ENCOUNTER 2021-08-05 06:07 | Day surgery (SDC) | payer MEDICARE, BC, SELFPAY ==
[2021-08-05 06:26] VITALS: BP 116/72; PULSE 88; RESP 16; TEMP 36.1; O2SAT 100
--- NOTE | 2021-08-05 06:35 | W.PREOPHP ---
Date of service: 08/05/21 Assessment and Plan Assessment and plan (1) Abnormal weight loss: Status: Acute (2) Rectal bleeding: Status: Acute Assessment and plan: Mrs Saha is a pleasant 70-year-old female with some rectal bleeding and unintentional weight loss. 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 She is worried that there might be something going on other than her hemorrhoids and I think it is reasonable to repeat her colonoscopy to make sure that there isn't anything else going on. I did discuss with her possibly doing a internal hemorrhoid banding as well at the same time. She is in agreement with this. Risks, benefits and complications have been reviewed. Complications include but are not limited to bleeding, pain, perforation, missed small lesion/polyp, sore throat, aspiration and adverse reaction to the medications. Questions were entertained and answered to their satisfaction and they wished to proceed. No guarantees were given or implied. Proceed with colonoscopy under sedation with possible internal hemorrhoid banding History of Present Illness Narrative: Mrs Saha is a 68-year-old female who is here today to discuss a possible colonoscopy. Her last colonoscopy was in 2014 and she was noted to have internal hemorrhoids. They did not find any polyps at that time. Over the last few months she has had some abnormal weight loss as well some rectal bleeding. She has noticed blood with almost every bowel movement. Sometimes there is also blood just in her underwear. Sometimes the blood is bright red and other times it looks like old clotted blood. She denies any nausea, vomiting or abdominal pain. She has been under a lot of stress recently with her sister being ill, her brother being diagnosed with bladder cancer and her being worked up for cancer as well. She herself is concerned that there might be something other than just her hemorrhoids bleeding. spotting dark red (and bright red) Frequency: constant 3-4 weeks Reports fatigue; Denies fever(s), heartburn or dyspepsia There have been no changes in her health since she was seen at the end of June Review of Systems Cardiovascular Cardiovascular: Denies chest pain, Denies chest pain at rest, Denies irregular heart rhythm, Denies dyspnea and Denies dyspnea on exertion Respiratory Respiratory: Denies cough, Denies dyspnea and Denies dyspnea on exertion Gastrointestinal Gastrointestinal: Reports as per HPI Genitourinary Genitourinary: Denies dysuria, Denies urinary incontinence and Denies urinary urgency Endocrine Endocrine: Reports system reviewed and no additional complaints, except as documented Hematologic/Lymphatic Hematologic/Lymphatic: Denies easy bruising and Denies lymphadenopathy [facility] Medical History Abnormal weight loss Asthma MILD INTERMITTENT Gastroesophageal reflux disease (08/23/13) Generalized osteoarthritis (08/23/13) Hypothyroidism (08/23/13) Non-alcoholic fatty liver disease (08/23/13) TRACEY treated with BiPAP Osteoporosis (12/21/16) first + bone density scan in 2017 Pulmonary nodule Type 2 diabetes mellitus without complication, without long-term current use of insulin (12/21/16) Surgical History Extraction of cataract B/L Fracture, Closed Treatment (~07/2004) ANKLE Family History FAMILY HX Neoplasm BREAST/OVARIAN Mother , 60 Essential hypertension Heart disease Hyperlipidemia Neoplasm OVARIAN Cancer ovarian Father , 81 Essential hypertension Heart disease Hyperlipidemia Neoplasm LUNG Lung cancer Sister Essential hypertension Depression Hyperlipidemia Brother Depression Heart disease Hyperlipidemia Bladder cancer Grandfather Parkinson disease Grandmother Diabetes Heart disease Stroke Grandmother Diabetes Heart disease Social History Smoking/Tobacco Use Status: Never Second Hand Exposure: Yes (waitressed in smoking sect. of rest. for 35 years) Smoking risk assessment performed?: Yes Alcohol Intake: never Drug use: Never Substance use type: does not use Caregiver/Support person: No Household members: spouse Housing: house Communication Needs: None and Corrective Lenses Do you need help understanding health information?: Rarely Pets and animals: No Sexually active: No Do you think of yourself as: straight/heterosexual Current gender identity: female What is your relationship status?: How often do you talk on the phone with friends or family?: three or more times per week How often do you get together with friends or relatives?: three or more times per week How often do you attend tenriism or christianity services?: 4 or more times per year Do you belong to any clubs or organized social groups?: yes Panel score (0-1 are the most socially isolated patients): 4 What type of physical activity do you participate in: walking Duration: 30-45 minutes/day Frequency: daily Anne-Marie/Mosque: Latter Day Special anne-marie needs: No Seatbelt use: always Helmet use: Yes Helmet use: always Drive intox or ride w/intox hyster driver: No Do you feel safe at home: Yes Meds Allergies and Home Medications Allergies Allergy/AdvReac Type Severity Reaction Status Date / Time latex Allergy Intermediate Verified 08/05/21 06:28 adhesive Allergy Rash. Verified 08/05/21 06:28 codeine AdvReac Unknown Verified 08/05/21 06:28 pseudoephedrine AdvReac Unknown DIZZINESS; Verified 08/05/21 06:28 LIGHTHEADEDNESS ANIMAL DANDER Allergy Intermediate Uncoded 08/05/21 06:28 Home Medications Medication Instructions Recorded Confirmed Type aspirin [Aspir 81] 81 mg PO DAILY tab-cap 08/14/13 08/03/21 History [id number] 1 ea PO DAILY 08/14/13 08/03/21 History calcium citrate-vitamin D3 2 ea PO DAILY 08/27/13 08/03/21 History multivitamin with minerals [One 1 ea PO DAILY 02/13/18 08/03/21 History Daily Complete] L.acidophil,salivari-Bifido 1 cap PO DAILY 06/25/19 08/03/21 History bifidum-Strep thermoph 175 mg capsule blood-glucose meter #1 each 07/02/19 08/03/21 Rx albuterol sulfate 90 mcg/actuation 2 puff IH QID PRN #18 gm 07/11/19 08/03/21 Rx aerosol inhaler alendronate 70 mg tablet 70 mg PO QWEEK #12 tab 08/08/20 08/03/21 Rx metformin 500 mg tablet 500 mg PO DAILY #90 tab-cap 09/22/20 08/03/21 Rx pravastatin 20 mg tablet 20 mg PO DAILY #90 tab-cap 09/22/20 08/03/21 Rx blood sugar diagnostic #100 strip 12/17/20 08/03/21 Rx lancets 28 gauge #100 ea 03/17/21 11/01/21 Rx levothyroxine 50 mcg tablet 50 mcg PO DAILY #90 tab-cap 12/17/20 08/03/21 Rx minocycline 50 mg capsule 50 mg PO .QOD cap 01/30/21 08/03/21 History Exam Const General: healthy appearing and comfortable Resp Effort & Inspection: normal respiratory effort Auscultation: clear to auscultation bilaterally Cardio Rate: regular rate Rhythm: regular rhythm Heart Sounds: no click, no gallops and no murmurs Results Last Vital Signs Temp 97.0 F L 08/05/21 06:26 Pulse 88 08/05/21 06:26 Resp 16 08/05/21 06:26 BP 116/72 08/05/21 06:26 Pulse Ox 100 08/05/21 06:26
--- NOTE | 2021-08-05 06:38 | W.COLOREPORT ---
Colonoscopy Report Date of procedure: 08/05/21 Pre-op diagnosis general: Unintentional weight loss and rectal bleeding Post-op diagnosis procedure note: other (mild blum-diverticulosis, grde 1 internal hemorrhoids) Procedure: Colonoscopy Surgeon: Mohini Garsia Anesthesia Type: General:No Airway (Shanell Castanon, MAYNOR) Estimated blood loss (mL): 0 Pathology: none sent Complications: None Disposition: same day Indications: Mrs Saha is a pleasant 70-year-old female with some rectal bleeding and unintentional weight loss. 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 She is worried that there might be something going on other than her hemorrhoids and I think it is reasonable to repeat her colonoscopy to make sure that there isn't anything else going on. I did discuss with her possibly doing a internal hemorrhoid banding as well at the same time. She is in agreement with this. Risks, benefits and complications have been reviewed. Complications include but are not limited to bleeding, pain, perforation, missed small lesion/polyp, sore throat, aspiration and adverse reaction to the medications. Questions were entertained and answered to their satisfaction and they wished to proceed. No guarantees were given or implied. Proceed with colonoscopy under sedation with possible internal hemorrhoid banding Prep: Miralax/Dulcolax Procedure Start Time: 07:27 Procedure End Time: 07:46 Retraction Time: 10 minutes Findings: mild blum-diverticulosis Grade 1 internal hemorrhoids Procedure Description: After informed consent was obtained the patient was taken to the procedure room and placed in a left decubitous position. Monitors were applied and a time out was done. The patients name, date of , procedure, allergies to medications and metal in their body was reviewed. The patient was then sedated. Once sedated and comfortable a rectal exam was done. External exam was normal. Internal exam revealed a normal sphincter tone and no palpable masses. The scope was then introduced and retro-flexed. Gtrade 1 internal hemorrhoids were identified. There was no bleeding and no iunflammation. There were no polyps or masses were identified on retro-flexion. The scope was then advanced to the cecum without difficulty. The ileocecal valve and appendiceal orifice were identified. The prep was good. The scope was then slowly retracted over 10 minutes back into the rectum. There were no polyps. There was mild blum- diverticulosis noted. The scope was removed and the patient was woken up and taken back to Same day surgery in stable condition. The patient tolerated the procedure well and there were no immediate complications. Follow up: The patient should follow up as needed if they develop changes in bowel habits or other new gastrointestinal complaints.
--- NOTE | 2021-08-05 06:38 | W.PM.DSUDISC ---
Discharge Plan Disposition Patient Disposition: HOME Condition: Good Discharge Details Reason For Visit: Rectal bleeding Attending Provider: Mohini Garsia Primary Care Provider: Shine Oviedo Home Meds and New Rx's Prescriptions: Continued Marta.acidseymour,saliva-B.bif-S.therm [Acidophilus Probiotic Blend] 175 mg capsule 1 cap PO DAILY RF: 0 minocycline 50 mg capsule 50 mg PO .QOD RF: 0 albuterol sulfate 90 mcg/actuation HFA aerosol inhaler 2 puff IH QID PRN (Reason: bronchospasm) Qty: 18 RF: 6 aspirin [Aspir-81] 81 MG tablet,delayed release (DR/EC) 81 mg PO DAILY RF: 0 znitxfux-jyvw-oah0-C-alfonso-bosw 1 EACH tablet 1 ea PO DAILY RF: 0 calcium citrate-vitamin D3 1 EACH tablet 2 ea PO DAILY RF: 0 multivitamin with minerals [One Daily Complete] 1 EACH tablet 1 ea PO DAILY RF: 0 (DME) blood-glucose meter Misc See Rx Instructions .ROUTE .MEDSUPPLY Qty: 1 RF: 0 alendronate 70 mg tablet 70 mg PO QWEEK Qty: 12 RF: 4 metformin 500 mg tablet 500 mg PO DAILY Qty: 90 RF: 4 pravastatin 20 mg tablet 20 mg PO DAILY Qty: 90 RF: 4 levothyroxine 50 mcg tablet 50 mcg PO DAILY Qty: 90 RF: 4 (DME) Blood Glucose Test Strip 1 ea Miscellaneous DAILY Qty: 100 RF: 2 (DME) lancets 28 gauge misc 1 ea Miscellaneous DAILY Qty: 100 RF: 2 Discharge Instructions Instructions: Diverticulosis (DC) Additional Instructions: Findings: mild diverticulosis grade 1 internal hemorrhoids Follow up: as needed Please call if you develop: fevers >101.5 Nausea or Vomiting Abdominal pain that is not transient Rectal bleeding that is more then a tbsp A hard abdomen and inability to pass gas DAY SURGERY UNIT POST ENDOSCOPY INSTRUCTIONS Instructions for everyone who is given Anesthesia: For your safety, please do the following for the next 24 Hours: a. Do not drive or operate dangerous equipment b. Do not drink alcohol beverages or use any recreational drugs for the first 24 hours or while taking pain medications. The medications in your body may have a reaction that can be dangerous. c. Do not make any important decisions or sign any important papers 1. Generally there are no restrictions on your activity after a day or so has gone by, but you may feel a bit fatigued for a few days. 2. After you arrive home you may have a light meal and return to a normal diet as you can tolerate it without feeling sick to your stomach. 3. After surgery, you may feel pain or discomfort. This should be only transient, but if it persists please contact your doctor. 4. If there are any questions regarding the findings of your procedure, please feel free to contact your doctor. 6. If you are unable to contact your doctor with a problem, contact the hospital at [phone]. 7. Continue all your regular medications unless directed otherwise. I understand the above instructions and have no questions. Signature of Patient or Responsible Adult Escort Date/Time Name of Responsible Adult Escort Signature of Nurse Date/Time Activity:: Activity as Tolerated Diet:: As Tolerated Discharge Orders Discharge Orders: Discharge Order (Routine); Ordered 08/05/21 Ordered By: Mohini Garsia DS: Diagnosis Discharge Diagnosis (1) Abnormal weight loss: Status: Acute (2) Rectal bleeding: Status: Acute
[2021-08-05] MEDS: Lactated Ringers 1,000 ML 80 ML IV (06:51)
--- NOTE | 2021-08-05 06:54 | W.ANESPRE ---
General Info Date of Service Date Performed: 08/05/21 Height: 5 ft 2 in Weight: 61.2 kg Body Mass Index (BMI): 24.6 Surgical Procedure: Operation Date: 08/05/21 07:35 Proposed Procedures Side Surgeon p Colonoscopy Mohini Garsia MD Meds Allergies and Home Medications Allergies Allergy/AdvReac Type Severity Reaction Status Date / Time latex Allergy Intermediate Verified 08/05/21 06:28 adhesive Allergy Rash. Verified 08/05/21 06:28 codeine AdvReac Unknown Verified 08/05/21 06:28 pseudoephedrine AdvReac Unknown DIZZINESS; Verified 08/05/21 06:28 LIGHTHEADEDNESS ANIMAL DANDER Allergy Intermediate Uncoded 08/05/21 06:28 Home Medication Medication Instructions Recorded aspirin [Aspir 81] 81 mg PO DAILY tab-cap 08/14/13 geacirtg-ekdv-gqw4-C-alfonso-bosw 1 ea PO DAILY 08/14/13 calcium citrate-vitamin D3 2 ea PO DAILY 08/27/13 multivitamin with minerals [One 1 ea PO DAILY 02/13/18 Daily Complete] L.acidophil,salivari-Bifido 1 cap PO DAILY 06/25/19 bifidum-Strep thermoph 175 mg capsule blood-glucose meter #1 each 07/02/19 albuterol sulfate 90 mcg/actuation 2 puff IH QID PRN #18 gm 07/11/19 aerosol inhaler alendronate 70 mg tablet 70 mg PO QWEEK #12 tab 08/08/20 metformin 500 mg tablet 500 mg PO DAILY #90 tab-cap 09/22/20 pravastatin 20 mg tablet 20 mg PO DAILY #90 tab-cap 09/22/20 blood sugar diagnostic #100 strip 12/17/20 lancets 28 gauge #100 ea 12/17/20 levothyroxine 50 mcg tablet 50 mcg PO DAILY #90 tab-cap 12/17/20 minocycline 50 mg capsule 50 mg PO .QOD cap 01/30/21 Current Visit Medications: Current Medications Generic Name Dose Route Start Last Admin Trade Name Freq PRN Reason Stop Dose Admin Hyoscyamine Sulfate 0.125 mg 08/05/21 06:39 Hyoscyamine 0.125 Mg Sl/Oral/Chew SL DIRECTED PRN Ringer's Solution 1,000 mls @ 80 mls/hr 08/05/21 06:00 08/05/21 06:51 IV 09/01/21 23:59 80 mls/hr INFUSION LISHA Administration IV Miscellaneous Supplies 1 each 08/05/21 06:00 Iv Access IV 09/01/21 23:59 DIRECTED LISHA Ondansetron HCl 4 mg 08/05/21 06:39 Ondansetron 4 Mg/2 Ml Vial IVP Q4H PRN PRN Nausea / Vomiting Sodium Chloride 0 ml 08/05/21 06:00 Normal Saline Flush 10 Ml Syr IV 09/01/21 23:59 PRN PRN Sodium Chloride 0 ml 08/05/21 06:00 Normal Saline 10 Ml Vial IJ 09/01/21 23:59 DIRECTED PRN Sterile Water 0 ml 08/05/21 06:00 Water,Injection,Sterile 10 Ml Vial IJ 09/01/21 23:59 DIRECTED PRN PFSH Active Problems Active Problems: Problem Status Onset Code Rectal bleeding K62.5 Hypertension I10 Abnormal weight loss R63.4 Shoulder pain, right M25.511 Imbalance R26.89 Acute swimmer's ear of left side H60.332 Pulmonary nodule R91.1 TRACEY treated with BiPAP G47.33 Chest congestion R09.89 Closed fracture of foot 08/23/13 S92.909A Internal hemorrhoids 07/02/15 K64.8 Fever of unknown origin R50.9 Trochanteric bursitis, right hip M70.61 Type 2 diabetes mellitus without complication, without long-term current use of insulin 12/21/16 E11.9 Osteoporosis 12/21/16 M81.0 Non-alcoholic fatty liver disease 08/23/13 K76.0 Hypothyroidism 08/23/13 E03.9 Generalized osteoarthritis 08/23/13 M15.9 Gastroesophageal reflux disease 08/23/13 K21.9 Asthma J45.909 Medical History Medical History Abnormal weight loss Asthma MILD INTERMITTENT Gastroesophageal reflux disease (08/23/13) Generalized osteoarthritis (08/23/13) Hypothyroidism (08/23/13) Non-alcoholic fatty liver disease (08/23/13) TRACEY treated with BiPAP Osteoporosis (12/21/16) first + bone density scan in 2017 Pulmonary nodule Type 2 diabetes mellitus without complication, without long-term current use of insulin (12/21/16) Surgical History Surgical History Extraction of cataract B/L Fracture, Closed Treatment (~07/2004) ANKLE Tobacco Smoking/Tobacco Use Status: Never Passive smoking exposure: Yes Second hand exposure: Yes (waitressed in smoking sect. of rest. for 35 years) Alcohol Alcohol Intake: never Substance Use Substance use: Never Substance use type: does not use Vital Signs and Lab Results Vital Signs Most Recent Vital Signs in EMR: Most Recent Vital Signs Temp Pulse Resp BP Pulse Ox 36.1 C L 88 16 116/72 100 08/05/21 06:26 08/05/21 06:26 08/05/21 06:26 08/05/21 06:26 08/05/21 06:26 Lab Results Blood Type / Crossmatch: No Data to Display Complete Blood Count: No Data to Display Complete Metabolic Panel: Hemoglobin A1c 5.8 % (4.5-5.7) H 07/15/21 12:54 07/15/21 Liver Function Panel: No Data to Display Coagulation Panel: No Data to Display Cardiac Panel: No Data to Display Arterial Blood Gas: No Data to Display Venous Blood Gas: No Data to Display Pancreas Panel: No Data to Display Thyroid Panel: No Data to Display Infectious Disease: Coronavirus (COVID-19)(PCR) Negative (Negative) 08/03/21 08:50 08/03/21 Coronavirus 2019 Source Nasal/Nares 08/03/21 08:50 08/03/21 Blood Cultures: No Data to Display Toxicology Panel: No Data to Display Anesthesia Assessment and Plan Anesthesia History Personal History: No History of Anesthesia Complications Family History: No Family History of Anesthesia Complications Exercise Tolerance Exercise Tolerance: Metabolic Equivalents>4 Pertinent Negatives Pertinent Negatives: No Symptoms of GERD (Resolved), No Major Cardiovascular Symptoms or Complaints, No Major Pulmonary Symptoms or Complaints and No History of CVA/TIA Cardiac & Pulmonary Exam Cardiac Exam: Normal S1/S2 Heart Sounds Pulmonary Exam: Clear Bilateral Breath Sounds Airway Exam Known Difficult Airway: No Mallampati Class: 1 Mouth Opening: Normal (> 3cm) Thyromental Distance: Greater than 3 cm Neck Range of Motion: Full ROM Neck Circumference: Normal Teeth Condition: Normal Dentition ASA Classification ASA Score: ASA 2 Emergency Case?: No NPO Status NPO Status: NPO Clears >2 hours, Solids >8 hours Anesthesia Plan Resuscitation Status: Full Code Anesthesia Technique: General Anesthesia Airway Planned: Natural Airway Monitors Used: Standard Monitors
[2021-08-05 07:01] VITALS: BMI 24.6
[2021-08-05 07:54] VITALS: BP 91/60; PULSE 72; RESP 18; TEMP 36.1; O2SAT 96
--- NOTE | 2021-08-05 08:23 | W.ANESPOSTOP ---
Postoperative Evaluation Date, Time and Location Date Performed: 08/05/21 Time Performed: 07:54 Patient Location: Day Surgery Unit Vital Signs Most Recent Imported Vital Signs: Most Recent Vital Signs Temp Pulse Resp BP Pulse Ox 36.1 C L 72 18 91/60 L 96 08/05/21 07:54 08/05/21 07:54 08/05/21 07:54 08/05/21 07:54 08/05/21 07:54 Pain Score Most Recent Pain Score: Most Recent Pain Score Pain Level 0 08/05/21 07:54 Assessment Mental Status: Awake (Alert & Oriented to Patient Baseline) Airway and Respiratory Function: Patent airway with normal (patient baseline) respiratory exam Cardiovascular Function: Hemodynamically Stable Hydration Status: Adequately Hydrated Nausea & Vomiting: No Nausea or Vomiting Pain: Pt. Denies Any Pain Peripheral Nerve Block: Patient did not receive a nerve block
[2021-08-05 08:25] VITALS: BP 106/71; PULSE 69; RESP 16; TEMP 36.2; O2SAT 98
== END 2021-08-05 08:32 | disposition home or self-care (01) ==
PROVIDERS: PCP Family Medicine; Visit Provider Surgery
PROC: 0DJD8ZZ Inspection of Lower Intestinal Tract, Via Natural or Artificial Opening Endoscopic (ICD-10-PCS; CPT 45378; principal; 2021-08-05 07:30)
DX: K64.0 First degree hemorrhoids (principal); R63.4 Abnormal weight loss; K57.30 Diverticulosis of large intestine without perforation or abscess without bleeding; G47.33 Obstructive sleep apnea (adult) (pediatric); K76.0 Fatty (change of) liver, not elsewhere classified; E03.9 Hypothyroidism, unspecified; K21.9 Gastro-esophageal reflux disease without esophagitis
CPT/HCPCS: 45378; J2001

== ENCOUNTER 2021-08-14 14:02 | Outpatient (REF) | payer MEDICARE, BC, SELFPAY ==
[2021-08-14 20:09] LABS: Bilirubin Negative (Negative); Blood Negative (Negative); Clarity Clear (Clear); Glucose Negative (Negative); Ketones Negative (Negative); Leukocyte Esterase Negative (Negative); Nitrite Negative (Negative); Specific Gravity 1.025 (1.005-1.025); Urobilinogen 0.2 EU/dL (Up TO 0.2)
== END 2021-08-14 14:03 | disposition home or self-care (01) ==
LOC: LBN 14:02
PROVIDERS: PCP Family Medicine; Visit Provider Family Medicine
DX: R30.0 Dysuria (principal)
CPT/HCPCS: 81003

== ENCOUNTER → 2021-09-15 10:10 | Outpatient (BNVA) | payer MEDICARE, BC, SELFPAY | PROVIDERS: PCP Family Medicine; Referring Provider Family Medicine; Visit Provider Surgery | DX: K64.8 Other hemorrhoids (principal); K64.4 Residual hemorrhoidal skin tags | CPT/HCPCS: 99213 ==

== ENCOUNTER → 2021-10-16 11:25 | Outpatient (BNVA) | payer MEDICARE, SELFPAY | PROVIDERS: PCP Family Medicine; Referring Provider Family Medicine; Visit Provider Surgery | DX: K64.8 Other hemorrhoids (principal); Z63.6 Dependent relative needing care at home | CPT/HCPCS: 99212; 99213 ==

== ENCOUNTER 2021-12-02 13:49 | Outpatient (CLI) | payer MEDICARE, SELFPAY ==
--- NOTE | 2021-12-02 13:45 | RT.EKG_ITS ---
APPROVED REPORT Exam: Resting ECG Reason for Exam: Heart Racing Patient Location: O HR:82 bpm ECG Measurements Heart Rate 82 AXIS MI 130 P 79 QRSd 89 QRS 30 QT 385 T 61 QTc 451 Conclusion Sinus rhythm...normal P axis, V-rate 60- 99 Normal Electrocardiogram
== END 2021-12-02 13:50 | disposition home or self-care (01) ==
LOC: DI.CM 13:50
PROVIDERS: PCP Family Medicine; Visit Provider Family Medicine
DX: F43.23 Adjustment disorder with mixed anxiety and depressed mood (principal)
CPT/HCPCS: 93010

== ENCOUNTER 2021-12-04 08:54 | Outpatient (RCR) | payer MEDICARE, SELFPAY ==
--- NOTE | 2021-12-04 09:00 | HOLTER_ITS ---
APPROVED REPORT Conclusion This is a 48-hour Holter monitor ordered for palpitations Predominant rhythm is sinus with an average heart rate of 74. Minimum was 54, maximum 115 A total of 6 isolated PVCs were recorded There were very rare atrial premature beats There was no atrial fibrillation, no high-grade AV block, no pauses greater than 3 seconds Patient symptoms of racing heart corresponded to sinus rhythm at a rate of 89
== END 2021-12-31 23:59 | disposition home or self-care (01) ==
LOC: RT 08:54
PROVIDERS: PCP Family Medicine; Visit Provider Family Medicine
DX: R00.2 Palpitations (principal); I49.3 Ventricular premature depolarization
CPT/HCPCS: 93227; 93225; 93226

== ENCOUNTER 2021-12-15 01:40 | Outpatient (CLI) | payer MEDICARE, SELFPAY ==
[2021-12-15 13:13] LABS: Hemoglobin A1C 6.6 % (<5.7)
[2021-12-15 13:34] LABS: COMMENT (LAB VIEW ONLY) 58.78 mg/dL; Microalb ug/mg Crea 13.1 ug/mg Cr
[2021-12-15 13:48] LABS: ALT 32 U/L (14-59); AST 26 U/L (15-37); Albumin 3.6 g/dL (3.4-5.0); Alkaline Phosphatase 61 U/L (46-116); Anion Gap 5.1 mmol/L (3-11); BUN 17 mg/dL (7-18); Bilirubin, Total 0.3 mg/dL (0.2-1.0); CO2 29.9 mmol/L (21.0-32.0); CREATININE 0.8 mg/dL (0.55-1.02); Calcium 8.5 mg/dL (8.5-10.1); Calculated LDL 80 mg/dL (<100); Chloride 103 mmol/L (98-107); Cholesterol 161 mg/dL (<200); Glucose 105 mg/dL (74-106); HDL Cholesterol 53 mg/dL (40-60); Potassium 4.8 mmol/L (3.5-5.1); Sodium 138 mmol/L (136-145); TSH (W/Ref FT4) 1.05 uIU/mL (0.36-3.74); Total Protein 6.9 g/dL (6.4-8.2); Triglyceride 143 mg/dL (<150)
== END 2021-12-15 01:41 | disposition home or self-care (01) ==
LOC: LBO 01:40
PROVIDERS: Family Medicine; PCP Family Medicine; Visit Provider Family Medicine
DX: E03.9 Hypothyroidism, unspecified (principal); I10 Essential (primary) hypertension; E11.9 Type 2 diabetes mellitus without complications; R41.9 Unspecified symptoms and signs involving cognitive functions and awareness; R91.1 Solitary pulmonary nodule
CPT/HCPCS: 36415; 80053; 80061; 82043; 82570; 83036; 84443

== ENCOUNTER → 2021-12-18 11:23 | Outpatient (BNVA) | payer MEDICARE, SELFPAY | PROVIDERS: PCP Family Medicine; Referring Provider Family Medicine; Visit Provider Surgery | DX: K64.8 Other hemorrhoids (principal) | CPT/HCPCS: 99212 ==

== ENCOUNTER 2022-04-20 09:36 | Outpatient (CLI) | payer MEDICARE, SELFPAY ==
--- NOTE | 2022-04-20 09:15 | DI.RAD_ITS ---
Exam(s) XR SHOULDER LT COMPLETE 2+V EXAM: XR SHOULDER LT COMPLETE 2+V CLINICAL HISTORY: LEFT SHOULDER PAIN. TECHNIQUE: 2D digital imaging was performed. COMPARISON: CR XR SHOULDER RT COMPLETE 2+V from 01/30/2021 FINDINGS: Two views There is no evidence of fracture nor dislocation. No abnormal soft tissue calcifications. Minimal d egenerative changes. No osteophytes. Bone density age-appropriate. No osseous lesions. IMPRESSION: No significant osseous findings DATA REPOSITORY: RADIATION DOSE DELIVERED:
== END 2022-04-20 09:37 | disposition home or self-care (01) ==
LOC: DIORS 09:36
PROVIDERS: PCP Family Medicine; Referring Provider Family Medicine; Visit Provider Student in an Organized Health Care Education/Training Program
DX: M75.22 Bicipital tendinitis, left shoulder; M75.52 Bursitis of left shoulder
CPT/HCPCS: 20610; 99203; 99214; 73030; J1030

== ENCOUNTER 2022-05-29 16:31 | Emergency (ER) | payer MEDICARE, SELFPAY ==
--- NOTE | 2022-05-29 16:30 | DI.RAD_ITS ---
Exam(s) XR ANKLE RT COMPLETE EXAM: XR ANKLE RT COMPLETE CLINICAL HISTORY: lateral ankle pain. TECHNIQUE: 2D digital imaging was performed. COMPARISON: No exams were available for comparison FINDINGS: 3 views There is no evidence of acute fracture or widening of the mortise. Talar dome appears unremarkable. Soft tissue swelling laterally but without evidence of lateral malleolus fracture. Small accessory ossicle is noted subjacent to the medial malleolus. This is not a fracture fragment. Small inferior calcaneal spur noted. Base of the 5th metatarsal is intact. IMPRESSION: Lateral soft tissue swelling but no fractures evident. DATA REPOSITORY: RADIATION DOSE DELIVERED:
[2022-05-29 16:38] VITALS: BP 153/62; PULSE 72; RESP 18; TEMP 37; O2SAT 98
--- NOTE | 2022-05-29 16:45 | W.ED.GENAD ---
Discharge Plan Disposition Patient Disposition: HOME Condition: Stable Discharge Details Clinical Impression: Right ankle sprain Primary Care Provider: Keenan Purdy ED Provider: Amilcar Delaney Home Meds and New Rx's Prescriptions: No Action heather Lee-Mary [Acidophilus Probiotic Blend] 175 mg capsule 1 cap PO DAILY minocycline 50 mg capsule 50 mg PO .QOD Rx Instructions: every other day albuterol sulfate 90 mcg/actuation HFA aerosol inhaler 2 puff IH QID PRN (Reason: bronchospasm) Qty: 18 6RF levothyroxine 50 mcg tablet 50 mcg PO DAILY Qty: 90 3RF (DME) Blood Glucose Test Strip 1 ea Miscellaneous DAILY Qty: 100 3RF Rx Instructions: use once a day prn/ FOR FREESTYLE LITE METER/ PT DOES NOT USE INSULIN Benefiber Clear SF (dextrin) 3 gram/3.5 gram powder in packet 1.5 g PO BID Rx Instructions: mix into at least 4 oz water or juice before administering hydrocortisone 2.5 % cream with perineal applicator 1 applic NM BID PRN (Reason: hemorrhoids) Qty: 30 0RF Rx Instructions: Use as needed for internal hemorrhoids aspirin [Aspir-81] 81 MG tablet,delayed release (DR/EC) 81 mg PO DAILY [id number]-alfonso-bosw 1 EACH tablet 1 ea PO DAILY calcium citrate-vitamin D3 1 EACH tablet 2 ea PO DAILY One Daily Complete 1 EACH tablet 1 ea PO DAILY (DME) blood-glucose meter Misc See Rx Instructions .ROUTE .MEDSUPPLY Qty: 1 0RF Rx Instructions: FreeStyle Lite Meter DAILY PRN (DME) lancets 28 gauge misc 1 ea Miscellaneous DAILY Qty: 100 2RF Rx Instructions: use once a day prn/FOR FREESTYLE LITE METER/NO INSULIN. DIAGNOSIS CODE E11.9 alendronate 70 mg tablet 70 mg PO QWEEK Qty: 12 3RF pravastatin 20 mg tablet 20 mg PO DAILY Qty: 90 3RF metformin 500 mg tablet 500 mg PO DAILY Qty: 90 3RF Discharge Instructions Instructions: Ankle Sprain (ED), R.I.C.E. Treatment (ED) Additional Instructions: You may perform weightbearing activities as tolerated. Please continue to take rtnx-dlv-zkflhga pain medication as needed for discomfort. If you are not improving in the next 1 to 2 weeks please call the orthopedic office and arrange a follow-up for reassessment and further treatment as needed. Referrals: [facility] [Provider Group] (If not improving in the next 1 to 2 weeks) Discharge Data Discharge Date/Time-TO BE ENTERED AT DEPARTURE: 05/29/22 17:53 Medical Decision Making Patient presenting to the emergency department for chief complaint of right ankle injury. Patient reports around 11 AM this morning she had a misstep when turning and injured her ankle. She is able to bear weight but has significant amount of tenderness with weightbearing activities. Physical exam shows lateral malleolus tenderness along with swelling to the lateral aspect of the ankle. Examination of the foot and lower extremity is otherwise unremarkable. We will plan on performing radiological imaging. Patient denies any need for pain medication at this time. Reviewed radiological imaging and shows no acute signs of fracture. Patient placed in lace up ankle's splint for comfort. Patient will call orthopedic office for follow-up as needed. After discussion of diagnosis and plan of care patient has no further needs, questions, or concerns and states clear understanding to return to the emergency department for any worsening symptoms. This documentation was generated using [employer] dictation system, please disregard any oddities of phrase or misspellings. Imaging Data Radiologic Study: Attestation: I personally reviewed and interpreted this imaging study as follows: Imaging: X-Ray Radiologist's impression: FINDINGS: 3 views There is no evidence of acute fracture or widening of the mortise. Talar dome appears unremarkable. Soft tissue swelling laterally but without evidence of lateral malleolus fracture. Small accessory ossicle is noted subjacent to the medial malleolus. This is not a fracture fragment. Small inferior calcaneal spur noted. Base of the 5th metatarsal is intact. IMPRESSION: Lateral soft tissue swelling but no fractures evident. HPI General Mode of arrival: ambulatory. Date/Time Provider Initiated Documentation: 05/29/22 16:34. Limitations to Documentation: no limitations. Information obtained by: patient and RN notes reviewed. History of Present Illness 71 year old F presents to the emergency department with the chief complaint of Right ankle injury, described as moderate, with intensity rated at 8. Quality is described as aching and sharp, and is localized to the right and lower extremity. Patient reports no radiation. Patient started experiencing this hour(s) (5) and it has been constant. Rest improves symptom(s), Movement worsens symptoms . Patient notes no other symptoms.. Patient did receive the following treatments prior to arrival, none Related Data Home Medications Medication Instructions Recorded Confirmed aspirin 81 mg tablet,delayed 81 mg PO DAILY 08/14/13 05/29/22 release (Aspir-) glucosamine 750 qi-szufdgpnmc-rwe 1 ea PO DAILY 08/14/13 05/29/22 no.1 625 mg-C 30 hm-lczm-abkr tablet calcium citrate 315 mg-vitamin D3 2 ea PO DAILY 08/27/13 05/29/22 5 mcg (200 unit) tablet multivitamin with minerals (One 1 ea PO DAILY 02/13/18 05/29/22 Daily Complete tablet) L.acidophil,salivari-Bifido 1 cap PO DAILY 06/25/19 05/29/22 bifidum-Strep thermoph 175 mg capsule (Acidophilus Probiotic Blend) blood-glucose meter #1 ea 07/02/19 05/29/22 albuterol sulfate 90 mcg/actuation 2 puff inhalation QID PRN 07/11/19 05/29/22 aerosol inhaler bronchospasm #18 grams lancets 28 gauge #100 ea 12/17/20 05/29/22 minocycline 50 mg capsule 50 mg PO .QOD 01/30/21 05/29/22 alendronate 70 mg tablet 70 mg PO QWEEK #12 tabs 12/18/21 05/29/22 hydrocortisone 2.5 % topical cream 1 applic NM BID PRN hemorrhoids 12/18/21 05/29/22 with perineal applicator #30 grams pravastatin 20 mg tablet 20 mg PO DAILY #90 tab-caps 12/18/21 05/29/22 wheat dextrin 3 gram/3.5 gram oral 1.5 g PO BID 12/18/21 05/29/22 powder packet (Benefiber Clear Sugar Free(dextrin)) blood sugar diagnostic (Blood #100 strips 12/21/21 05/29/22 Glucose Test strips) levothyroxine 50 mcg tablet 50 mcg PO DAILY #90 tab-caps 12/21/21 05/29/22 metformin 500 mg tablet 500 mg PO DAILY #90 tab-caps 01/04/22 05/29/22 Previous Rx's Medication Instructions Recorded blood-glucose meter #1 ea 07/02/19 albuterol sulfate 90 mcg/actuation 2 puff inhalation QID PRN 07/11/19 aerosol inhaler bronchospasm #18 grams lancets 28 gauge #100 ea 12/17/20 alendronate 70 mg tablet 70 mg PO QWEEK #12 tabs 12/18/21 hydrocortisone 2.5 % topical cream 1 applic NM BID PRN hemorrhoids 12/18/21 with perineal applicator #30 grams pravastatin 20 mg tablet 20 mg PO DAILY #90 tab-caps 12/18/21 blood sugar diagnostic (Blood #100 strips 12/21/21 Glucose Test strips) levothyroxine 50 mcg tablet 50 mcg PO DAILY #90 tab-caps 12/21/21 metformin 500 mg tablet 500 mg PO DAILY #90 tab-caps 01/04/22 Allergies Allergy/AdvReac Type Severity Reaction Status Date / Time latex Allergy Intermediate Verified 04/20/22 09:17 cigarette smoke Allergy Mild Verified 04/20/22 09:17 adhesive Allergy Rash. Verified 04/20/22 09:17 codeine AdvReac Unknown Verified 04/20/22 09:17 pseudoephedrine AdvReac Unknown DIZZINESS; Verified 04/20/22 09:17 LIGHTHEADEDNESS ANIMAL DANDER Allergy Intermediate Uncoded 04/20/22 09:17 General Stated Complaint: Orthopedic LAVERN: 4 Review of Systems Narrative: 6 systems reviewed and unremarkable except what is marked below. Musculoskeletal Musculoskeletal: Reports as per HPI, Reports arthralgias, Reports joint swelling, Denies numbness, Denies stiffness and Denies tingling Integumentary/Breasts Skin/Breast: Denies wounds Neurologic Neurologic: Denies numbness and Denies tingling PFSH All Active Problems (Updated 05/29/22 @ 17:35 by Amilcar Delaney NP) Right ankle sprain (Acute) Tendinitis of long head of biceps brachii of left shoulder (Acute) Bursitis of left shoulder (Acute) Left shoulder pain (Acute) Palpitations (Acute) Osteoporosis (Chronic) On bisphosphonates since 2017 Anal skin tag (Acute) Hypertension (Chronic) Abnormal weight loss (Acute) Pulmonary nodule (Acute) An incidental nodule-left lower lobe, small, no gear changer 9-year interval last CT 2019 TRACEY treated with BiPAP (Acute) Internal hemorrhoids (Acute 07/02/15) Trochanteric bursitis, right hip (Chronic) Type 2 diabetes mellitus without complication, without long-term current use of insulin (Chronic 12/21/16) Hypothyroidism (Chronic 08/23/13) Gastroesophageal reflux disease (Chronic 08/23/13) Medical History Acute swimmer's ear of left side Asthma MILD INTERMITTENT Chest congestion Closed fracture of foot (08/23/13) Fever of unknown origin likely reaction to ibandronate (flu-like symptoms common) u/a negative here Generalized osteoarthritis (08/23/13) Imbalance Non-alcoholic fatty liver disease (08/23/13) Osteoporosis (12/21/16) first + bone density scan in 2017 Shoulder pain, right Surgical History Extraction of cataract B/L Fracture, Closed Treatment (~07/2004) ANKLE History of colonoscopy (~07/2019) Family History FAMILY HX Neoplasm BREAST/OVARIAN Mother , 60 Essential hypertension Heart disease Hyperlipidemia Neoplasm OVARIAN Cancer ovarian Father , 81 Essential hypertension Heart disease Hyperlipidemia Neoplasm LUNG Lung cancer Sister Essential hypertension Depression Hyperlipidemia Brother Depression Heart disease Hyperlipidemia Bladder cancer Grandfather Parkinson disease Grandmother Diabetes Heart disease Stroke Grandmother Diabetes Heart disease Social History Smoking/Tobacco Use Status: Never Second Hand Exposure: Yes (waitressed in smoking sect. of rest. for 35 years) Smoking risk assessment performed?: Yes Alcohol Intake: never Drug use: Never Substance use type: does not use Caregiver/Support person: No Household members: spouse Housing: house Communication Needs: None and Corrective Lenses Do you need help understanding health information?: Rarely Pets and animals: No Sexually active: No Do you think of yourself as: straight/heterosexual Current gender identity: female What is your relationship status?: How often do you talk on the phone with friends or family?: three or more times per week How often do you get together with friends or relatives?: three or more times per week How often do you attend jainism or denominational services?: 4 or more times per year Do you belong to any clubs or organized social groups?: yes Panel score (0-1 are the most socially isolated patients): 4 What type of physical activity do you participate in: walking Duration: 30-45 minutes/day Frequency: daily Anne-Marie/Holiness: Voodoo Special anne-marie needs: No Seatbelt use: always Helmet use: Yes Helmet use: always Drive intox or ride w/intox corporate driver: No Do you feel safe at home: Yes Do you feel safe in your relationship?: Yes Exam Const General: cooperative, no acute distress and not ill appearing Orientation: alert, awake and oriented x3 Resp Effort & Inspection: normal respiratory effort, able to speak in complete sentences and no respiratory distress Cardio Rate: regular rate Rhythm: regular rhythm Pulses: posterior tibial pulses present and dorsalis pedis present Skin General skin exam: no rashes or lesions noted Neuro General: patient alert, patient awake, patient oriented x3, moves all extremities and no focal motor deficits Sensory Exam: no sensory deficits noted Extrem General: normal exam except as noted Right lower extremity: lower leg Details: no tenderness and no localized swelling and ankle Details: tenderness Location: of the lateral malleolus, swelling Details: laterally and abnormal ROM Details: pain with active ROM; no abrasions and no lacerations Course Vital Signs Vital signs: Vital Signs Temperature 37 C 05/29/22 16:38 Pulse 72 05/29/22 16:38 Respiratory Rate 18 05/29/22 16:38 Blood Pressure 153/62 H 05/29/22 16:38 Pulse Oximetry 98 05/29/22 16:38 Temperature 37 C 05/29/22 16:38 Temperature Source Temporal Artery Scan 05/29/22 16:38 Pulse 72 05/29/22 16:38 Respiratory Rate 18 05/29/22 16:38 Blood Pressure 153/62 H 05/29/22 16:38 Pulse Oximetry 98 05/29/22 16:38 Oxygen Delivery Method Room Air 05/29/22 16:38 Oxygen Flow Rate 0 05/29/22 16:38 Pain Level 4 05/29/22 16:38
[2022-05-29 17:49] VITALS: BP 153/62; PULSE 72; RESP 18; TEMP 37; O2SAT 98
== END 2022-05-29 17:53 | disposition home or self-care (01) ==
PROVIDERS: Emergency Provider Nurse Practitioner Family; PCP Family Medicine
DX: S93.401A Sprain of unspecified ligament of right ankle, initial encounter (principal); J45.20 Mild intermittent asthma, uncomplicated; Z77.22 Contact with and (suspected) exposure to environmental tobacco smoke (acute) (chronic); X50.9XXA Other and unspecified overexertion or strenuous movements or postures, initial encounter
CPT/HCPCS: 99283; 73610; 99282

== ENCOUNTER → 2022-09-22 01:16 | Outpatient (CLI) | payer MEDICARE, SELFPAY ==
--- NOTE | 2022-09-22 12:45 | DI.MRI_ITS ---
Exam(s) MR UPPER JOINT LT WO EXAM: MR UPPER JOINT LT WO CLINICAL HISTORY: persistent pain, weakness,lt rotator cuff tear,m75.102 TECHNIQUE: Multiplanar multisequence MRI of the shoulder was performed. COMPARISON: CR XR SHOULDER LT COMPLETE 2+V from 04/20/2022 FINDINGS: MARROW:There is no evidence of fracture, Hill-Sachs deformity, nor bony Bankart lesion. There also n o ominous osseous lesions. ROTATOR CUFF MECHANISM: AC JOINT/ACROMIUM: Minimal degenerative changes in the AC joint.. There is bone edema evident in the chromium. There is no evidence of os acromiale. Supraspinatus: There is increased signal in supraspinatus tendon and what appears to be partial artic ular side surface tearing. This is over the lateral 3rd of the humeral head. No retraction musculot endinous junction. No muscle atrophy. There is, however, sliver of fluid in the subacromial bursa. Infraspinatus: Intact. No evidence of tear nor muscle atrophy. Teres Minor: Intact. No evidence of tear nor muscle atrophy. Subscapularis/anterior cuff: Intact. No abnormal signal at the level of the multipennate insertional fibers. No significant tear nor atrophy. BICEPS TENDON: Exhibits normal position within the intertubercular groove. No tear. No tenosynoviti s. LABRUM: No obvious labral tears. No evidence of paralabral cyst. LABROLIGAMENTOUS/CAPSULAR COMPLEX: There is no evidence of avulsion of the anterior-inferior labrum, capsule, inferior glenohumeral liga ment complex nor disruption of the scapular periosteum to suggest the presence of a Bankart lesion. GLENOHUMERAL JOINT: No joint effusion nor obvious loose intra-articular bodies. No chondral defects. No osteophytes. No degenerative subarticular cysts. No evidence of capsular tear. The inferior gle nohumeral ligament is intact. QUADRILATERAL SPACE: No evidence of mass in the region of the axillary nerve and dorsal circumflex hu meral vessels. Visualized triceps muscle at this level appears unremarkable. IMPRESSION: 1. There is tendinitis signal and suggestion of partial thickness tearing of the anterior supraspinat us tendon. No obvious full-thickness tear of the supraspinatus tendon evident despite presence of sm all amount of fluid in the subacromial bursa. There is no muscle atrophy. Other muscular components of the rotator cuff mechanism are intact. 2. No obvious labral tears and the biceps tendon appears intact and nondisplaced. 3. Minimal degenerative changes. No glenohumeral joint effusion. No loose bodies in the joint space evident. No degenerative subarticular cysts. 4. Although there is no prominent degenerative change in the AC joint, there is a significant amount of intraosseous bone edema in the acromion noted. There is no evidence of os acromiale. DATA REPOSITORY:
== END ==
PROVIDERS: PCP Family Medicine; Visit Provider Student in an Organized Health Care Education/Training Program
DX: M25.512 Pain in left shoulder (principal); M75.102 Unspecified rotator cuff tear or rupture of left shoulder, not specified as traumatic; M19.012 Primary osteoarthritis, left shoulder; M25.812 Other specified joint disorders, left shoulder
CPT/HCPCS: 73221

== ENCOUNTER → 2022-10-05 13:39 | Outpatient (BNVA) | payer MEDICARE, SELFPAY | PROVIDERS: PCP Family Medicine; Referring Provider Family Medicine; Visit Provider Student in an Organized Health Care Education/Training Program | DX: M75.102 Unspecified rotator cuff tear or rupture of left shoulder, not specified as traumatic (principal); M75.22 Bicipital tendinitis, left shoulder; M75.52 Bursitis of left shoulder | CPT/HCPCS: 20610; 99213; J1030 ==

== ENCOUNTER 2022-12-16 02:44 | Outpatient (CLI) | payer MEDICARE, SELFPAY ==
[2022-12-16 12:31] LABS: Anion Gap 7.6 mmol/L (3-11); BUN 22 mg/dL (7-18); CO2 28.4 mmol/L (21.0-32.0); CREATININE 0.7 mg/dL (0.55-1.02); Calcium 8.8 mg/dL (8.5-10.1); Calculated LDL 96 mg/dL (<100); Chloride 106 mmol/L (98-107); Cholesterol 172 mg/dL (<200); Glucose 113 mg/dL (74-106); HDL Cholesterol 52 mg/dL (40-60); Potassium 4.1 mmol/L (3.5-5.1); Sodium 142 mmol/L (136-145); Triglyceride 121 mg/dL (<150)
[2022-12-16 12:42] LABS: Hemoglobin A1C 6.6 % (<5.7)
== END 2022-12-16 02:45 | disposition home or self-care (01) ==
LOC: LBO 02:44
PROVIDERS: PCP Family Medicine; Visit Provider Family Medicine
DX: E78.5 Hyperlipidemia, unspecified (principal); R73.9 Hyperglycemia, unspecified; E87.1 Hypo-osmolality and hyponatremia
CPT/HCPCS: 36415; 80048; 80061; 99212; 83036

== ENCOUNTER → 2023-01-12 13:10 | Outpatient (BNVA) | payer MEDICARE, SELFPAY | PROVIDERS: PCP Family Medicine; Referring Provider Family Medicine; Visit Provider Student in an Organized Health Care Education/Training Program | DX: M75.102 Unspecified rotator cuff tear or rupture of left shoulder, not specified as traumatic (principal); M75.22 Bicipital tendinitis, left shoulder; M75.52 Bursitis of left shoulder | CPT/HCPCS: 99213 ==

== ENCOUNTER → 2023-03-11 11:22 | Outpatient (BNVA) | payer MEDICARE, SELFPAY | PROVIDERS: PCP Family Medicine; Referring Provider Family Medicine; Visit Provider Surgery | DX: K64.8 Other hemorrhoids (principal) | CPT/HCPCS: 99212; 99213 ==

== ENCOUNTER 2023-05-03 09:14 | Outpatient (CLI) | payer MEDICARE, SELFPAY ==
--- NOTE | 2023-05-03 08:28 | DI.RAD_ITS ---
Exam(s) XR SHOULDER LT COMPLETE 2+V EXAM: XR SHOULDER LT COMPLETE 2+V CLINICAL HISTORY: Left shoulder pain. TECHNIQUE: 2D digital imaging was performed. Three views. COMPARISON: CR XR SHOULDER LT COMPLETE 2+V from 04/20/2022 MR MR UPPER JOINT LT WO from 09/22/2022 FINDINGS: BONES: No acute fracture is present. On the AP view, there is an apparent erosion at the tip of the a cromion not present previously. The prior MRI showed edema in the acromion. Correlation with surgic al history recommended. JOINTS: No dislocation present. No humeral joint is maintained. No significant spurring at the AC j oint. SOFT TISSUE: Normal. IMPRESSION: Erosion at the tip of the acromion. Findings could be postsurgical or could represent bony destructi on from infection. Clinical correlation is recommended DATA REPOSITORY: RADIATION DOSE DELIVERED:
== END 2023-05-03 09:15 | disposition home or self-care (01) ==
LOC: DIORS 09:15
PROVIDERS: PCP Family Medicine; Referring Provider Family Medicine; Visit Provider Student in an Organized Health Care Education/Training Program
DX: M75.102 Unspecified rotator cuff tear or rupture of left shoulder, not specified as traumatic (principal); M75.22 Bicipital tendinitis, left shoulder; M75.52 Bursitis of left shoulder
CPT/HCPCS: 99213; 73030

== ENCOUNTER 2023-05-10 15:48 | Outpatient (CLI) | payer MEDICARE, SELFPAY ==
--- NOTE | 2023-05-10 13:30 | DI.US_ITS ---
Exam(s) US LOWER EXTREMITY VENOUS RT EXAM: US LOWER EXTREMITY VENOUS RT CLINICAL HISTORY: Pain in rt leg, M79.604, r/o DVT TECHNIQUE: Right lower extremity venous ultrasound performed using grayscale, color-flow, and spectr al Doppler analysis. COMPARISON: No exams were available for comparison FINDINGS: The right common femoral, femoral and popliteal veins demonstrate normal compressibility, augmentatio n, and color Doppler. The posterior tibial and peroneal veins are patent. The saphenofemoral junctio n is unremarkable. There is no evidence of a Carcamo cyst. The soft tissues are unremarkable. IMPRESSION: No evidence of a right lower extremity DVT. DATA REPOSITORY:
== END 2023-05-10 16:08 ==
LOC: DI 15:50
PROVIDERS: PCP Family Medicine; Visit Provider Physician Assistant
DX: M79.604 Pain in right leg (principal)
CPT/HCPCS: 93971

== ENCOUNTER → 2023-05-20 01:11 | Outpatient (CLI) | payer MEDICARE, SELFPAY ==
--- NOTE | 2023-05-20 15:05 | DI.MRI_ITS ---
Exam(s) MR UPPER JOINT LT WO EXAM: MR UPPER JOINT LT WO CLINICAL HISTORY: further evaluation of the acromion reaction,LT ROTATOR CUFF TEAR,TENDINITIS TECHNIQUE: Multiplanar multisequence MRI of the shoulder was performed. COMPARISON: MR MR UPPER JOINT LT WO from 09/22/2022 CR XR SHOULDER LT COMPLETE 2+V from 05/03/2023 FINDINGS: MARROW:There is no evidence of fracture, Hill-Sachs deformity, bony Bankart lesion, nor ominous osseo us lesions. ROTATOR CUFF MECHANISM: AC JOINT/ACROMIUM: There is mild degenerative change in the AC joint. There is prominent bone edema in the achromium. There is no os acromiale. There is no bone edema in the lateral aspect of the cla vicle.. There is some fluid in the subacromial-subdeltoid bursa. Also within the rotator cuff interval Supraspinatus: There is mild increased signal within the most anterior aspect of the supraspinatus te ndon at its insertion site on the greater tuberosity. However, there is no fluid signal which appear s to traverse the thickness the tendon at this level. There is no muscle atrophy. Infraspinatus: Intact. No evidence of tear nor muscle atrophy. Teres Minor: Intact. No evidence of tear nor muscle atrophy. Subscapularis/anterior cuff: Intact. No abnormal signal at the level of the multipennate insertional fibers. No significant tear nor atrophy. BICEPS TENDON: Not displaced from the intertubercular groove No tear. Small amount of fluid in the tendon sheath. LABRUM: There is no abnormal signal in the superior labrum posterior to the biceps insertion site.. Posterior labrum appears intact. Some signal abnormality is noted in the anterior labrum but doubtfu l for true tear. Inferior labrum appears intact. Inferior glenohumeral ligament appears. GLENOHUMERAL JOINT: Minimal amount of increased joint fluid. No loose intra-articular bodies. No de generative subarticular cysts. There is a small osteophyte on the inferior articular surface of the humeral head. QUADRILATERAL SPACE: No evidence of mass in the region of the axillary nerve and dorsal circumflex hu meral vessels. Visualized triceps muscle at this level appears unremarkable. IMPRESSION: 1. Mild increased signal in the anterior aspect of the supraspinatus tendon but without obvious high- grade tear at this level nor elsewhere in the rotator cuff mechanism. There is, however, a small jackelyn unt of fluid in the subacromial-subdeltoid bursa, probably related to bursitis. 2. There is diffuse bone edema evident in the a chromium, not associated with fracture line nor os ac romial. 3. No evidence of biceps tendon nor prominent labral tear appear Mild degenerative changes in the glenohumeral joint. DATA REPOSITORY:
== END ==
PROVIDERS: PCP Family Medicine; Visit Provider Student in an Organized Health Care Education/Training Program
DX: M75.22 Bicipital tendinitis, left shoulder (principal)
CPT/HCPCS: 73221

== ENCOUNTER → 2023-05-24 03:20 | Outpatient (CLI) | payer MEDICARE, SELFPAY ==
--- NOTE | 2023-05-24 08:30 | DI.US_ITS ---
Exam(s) US LOWER EXTREMITY VENOUS LT EXAM: US LOWER EXTREMITY VENOUS LT CLINICAL HISTORY: ? DVT,pain lt calf, m79.662 TECHNIQUE: Left lower extremity venous ultrasound performed using grayscale, color-flow, and spectra l Doppler analysis. COMPARISON: No exams were available for comparison FINDINGS: The left common femoral, femoral and popliteal veins demonstrate normal compressibility, augmentation , and color Doppler. The posterior tibial and peroneal veins are patent. The saphenofemoral junction is unremarkable. There is no evidence of a Carcamo cyst. The soft tissues are unremarkable. IMPRESSION: No evidence of a left lower extremity DVT. DATA REPOSITORY:
== END ==
PROVIDERS: PCP Family Medicine; Visit Provider Nurse Practitioner Family
DX: M79.662 Pain in left lower leg (principal)
CPT/HCPCS: 93971

== ENCOUNTER 2023-05-27 08:21 | Emergency (ER) | payer MEDICARE, SELFPAY ==
[2023-05-27] VITALS (21 sets, daily range): BP systolic 108–151; BP diastolic 50–95; PULSE 57–72; RESP 13–20; TEMP 36.4; O2SAT 93–99
--- NOTE | 2023-05-27 08:15 | RT.EKG_ITS ---
APPROVED REPORT Exam: Resting ECG Reason for Exam: Light headed Patient Location: E HR:66 bpm ECG Measurements Heart Rate 66 AXIS DE 178 P 73 QRSd 92 QRS 28 QT 423 T 53 QTc 443 Conclusion Sinus rhythm...normal P axis, V-rate 60- 99
--- NOTE | 2023-05-27 09:09 | W.ED.GENAD ---
Discharge Plan Disposition Patient Disposition: Home Discharge Details Clinical Impression: Benign paroxysmal positional vertigo Primary Care Provider: Keenan Purdy ED Provider: Amilcar Delaney Home Meds and New Rx's Prescriptions: New meclizine 12.5 mg tablet 12.5 mg PO TID PRN (Reason: dizziness) Qty: 30 0RF Continued L.acidoph,saliva-B.bif-S.therm [Acidophilus Probiotic Blend] 175 mg capsule 1 cap PO DAILY minocycline 50 mg capsule 50 mg PO .QOD Rx Instructions: every other day hydrocortisone 2.5 % cream with perineal applicator 1 applic UT BID PRN (Reason: hemorrhoids) Qty: 30 0RF Rx Instructions: Use as needed for internal hemorrhoids Benefiber Clear SF (dextrin) 3 gram/3.5 gram powder in packet 1.5 g PO DAILY Rx Instructions: mix into at least 4 oz water or juice before administering docusate sodium [Colace] 100 mg capsule 100 mg PO DAILY Qty: 30 12RF Systane Balance 0.6 % drops 1 drp ophthalmic (eye) DAILY PRN vitamin E (dl, acetate) 180 mg (400 unit) capsule 180 mg PO DAILY (DME) comp.stocking,knee,long,medium Misc See Rx Instructions .Route Qty: 12 2RF Rx Instructions: As directed (DME) blood-glucose meter Misc See Rx Instructions .ROUTE .MEDSUPPLY Qty: 1 0RF Rx Instructions: FreeStyle Lite Meter DAILY PRN alendronate 70 mg tablet 70 mg PO QWEEK Qty: 12 3RF levothyroxine 50 mcg tablet 50 mcg PO DAILY Qty: 90 3RF metformin 500 mg tablet 500 mg PO DAILY Qty: 90 3RF pravastatin 20 mg tablet 20 mg PO DAILY Qty: 90 3RF (DME) Blood Glucose Test Strip 1 ea Miscellaneous DAILY Qty: 100 3RF Rx Instructions: use once a day prn/ FOR FREESTYLE LITE METER/ PT DOES NOT USE INSULIN (DME) lancets 28 gauge misc 1 ea Miscellaneous DAILY Qty: 100 2RF Rx Instructions: use once a day prn/FOR FREESTYLE LITE METER/NO INSULIN. DIAGNOSIS CODE E11.9 eye promise restore capsule PO BID Rx Instructions: from Dr. Alyssa Calvillo Nighttime 94-3 % ointment 1 applic ophthalmic (eye) HS aspirin [Aspir-81] 81 MG tablet,delayed release (DR/EC) 81 mg PO DAILY calcium citrate-vitamin D3 1 EACH tablet 2 ea PO DAILY One Daily Complete 1 EACH tablet 1 ea PO DAILY magnesium oxide 400 mg (241.3 mg magnesium) tablet 400 mg PO DAILY Discharge Instructions Instructions: Benign Paroxysmal Positional Vertigo (ED) Additional Instructions: You may continue to use the prescribed meclizine as needed for further symptoms of dizziness. As discussed if you have any new or significant worsening of your condition feel free to return the emergency department for reassessment otherwise follow-up with your primary care provider for recheck of your symptoms next week. Referrals: Keenan Purdy MD [Primary Care Provider] - (Keep your appointment for next week) Discharge Data Discharge Date/Time-TO BE ENTERED AT DEPARTURE: 05/27/23 11:40 Medical Decision Making Patient presenting to the emergency department for chief complaint of dizziness. Patient reports when she started to get out of bed yesterday she had an episode where she felt like she was going into a hole this seemed to resolve throughout the day yesterday but then this morning when she went to get out of bed again she had a significant return of symptoms. Patient denies chest pain, shortness of breath, focalized weakness numbness or tingling, denies headache denies syncope fever chills or other symptoms. Physical exam shows positive right gaze lateral nystagmus that is horizontal in nature otherwise unremarkable physical exam. Patient does have history of diabetes, hypertension, sleep apnea, hypothyroidism and palpitations. Did perform Aguila maneuver that did somewhat exacerbate symptoms. We will plan on checking patient's labs, EKG, and will give meclizine pending results. Chief working differential diagnosis is benign positional vertigo. Less likely is CVA or TIA, ACS, mass occupying lesion, intracranial abnormality. We will continue to reassess patient and if lack of improvement or any worsening will consider advanced imaging as needed. Please see physician interpretation for full interpretation of EKG but upon my review patient is in sinus rhythm, rate of 66, does not meet criteria for acute STEMI. Reviewed patient's labs and CBC is overall unremarkable nondiagnostic, CMP shows slightly elevated BUN of 19, glucose of 183, albumin of 3.3, all the other labs are unremarkable, troponin is nondetected and less than 50, TSH is 1.56, urinalysis is completely normal. Reassessed patient and she stated significant improvement of symptoms, was able to ambulate without severe worsening. Hints exam was performed and shows no abnormal findings to suggest CVA. Discussed with patient further monitoring of symptoms, prescription for meclizine, and return for worsening of condition. Patient was in agreement with this plan of care. Placed patient on follow-up list to follow-up with primary care next week. After discussion of diagnosis and plan of care patient has no further needs, questions, or concerns and states clear understanding to return to the emergency department for any worsening symptoms. This documentation was generated using [employer] system, please disregard any oddities of phrase or misspellings. Lab Data Lab results reviewed: Yes I reviewed the patient's lab results. HPI General Mode of arrival: ambulatory. Date/Time Provider Initiated Documentation: 05/27/23 08:36. Limitations to Documentation: no limitations. Information obtained by: patient and RN notes reviewed. History of Present Illness 72 year old F presents to the emergency department with the chief complaint of Dizziness, described as moderate, Patient started experiencing this day(s) (1) and it has been intermittent. Rest improves symptom(s), Movement worsens symptoms . Patient notes no other symptoms.. Patient did receive the following treatments prior to arrival, none Related Data Home Medications Medication Instructions Recorded Confirmed aspirin 81 mg tablet,delayed 81 mg PO DAILY 08/14/13 05/27/23 release (Aspir-) calcium citrate 315 mg-vitamin D3 2 ea PO DAILY 08/27/13 05/27/23 5 mcg (200 unit) tablet multivitamin with minerals (One 1 ea PO DAILY 02/13/18 05/27/23 Daily Complete tablet) L.acidophil,salivari-Bifido 1 cap PO DAILY 06/25/19 05/27/23 bifidum-Strep thermoph 175 mg capsule (Acidophilus Probiotic Blend) minocycline 50 mg capsule 50 mg PO .QOD 01/30/21 05/27/23 hydrocortisone 2.5 % topical cream 1 applic UT BID PRN hemorrhoids 12/18/21 05/27/23 with perineal applicator #30 grams blood-glucose meter #1 ea 06/30/22 05/18/23 docusate sodium 100 mg capsule 100 mg PO DAILY #30 caps 12/16/22 05/27/23 (Colace) alendronate 70 mg tablet 70 mg PO QWEEK #12 tabs 12/22/22 05/27/23 blood sugar diagnostic (Blood #100 strips 12/22/22 05/18/23 Glucose Test strips) lancets 28 gauge #100 ea 12/22/22 05/18/23 levothyroxine 50 mcg tablet 50 mcg PO DAILY #90 tab-caps 12/22/22 05/27/23 metformin 500 mg tablet 500 mg PO DAILY #90 tab-caps 12/22/22 05/27/23 pravastatin 20 mg tablet 20 mg PO DAILY #90 tab-caps 12/22/22 05/27/23 propylene glycol 0.6 % eye drops 1 drp ophthalmic (eye) DAILY PRN 01/12/23 05/27/23 (Systane Balance) eye promise restore PO BID 03/11/23 05/18/23 wheat dextrin 3 gram/3.5 gram oral 1.5 g PO DAILY 03/11/23 05/27/23 powder packet (Benefiber Clear Sugar Free(dextrin)) white petrolatum-mineral oil 94 1 applic ophthalmic (eye) HS 03/11/23 05/18/23 %-3 % eye ointment (Systane Nighttime) comp.stocking,knee,long,medium #12 ea 05/18/23 05/18/23 vitamin E (dl, acetate) 180 mg 180 mg PO DAILY 05/18/23 05/27/23 (400 unit) capsule magnesium oxide 400 mg (241.3 mg 400 mg PO DAILY 05/27/23 05/27/23 magnesium) tablet meclizine 12.5 mg tablet 12.5 mg PO TID PRN dizziness #30 05/27/23 tabs Previous Rx's Medication Instructions Recorded hydrocortisone 2.5 % topical cream 1 applic UT BID PRN hemorrhoids 12/18/21 with perineal applicator #30 grams blood-glucose meter #1 ea 06/30/22 docusate sodium 100 mg capsule 100 mg PO DAILY #30 caps 12/16/22 (Colace) alendronate 70 mg tablet 70 mg PO QWEEK #12 tabs 12/22/22 blood sugar diagnostic (Blood #100 strips 12/22/22 Glucose Test strips) lancets 28 gauge #100 ea 12/22/22 levothyroxine 50 mcg tablet 50 mcg PO DAILY #90 tab-caps 12/22/22 metformin 500 mg tablet 500 mg PO DAILY #90 tab-caps 12/22/22 pravastatin 20 mg tablet 20 mg PO DAILY #90 tab-caps 12/22/22 comp.stocking,knee,long,medium #12 ea 05/18/23 meclizine 12.5 mg tablet 12.5 mg PO TID PRN dizziness #30 05/27/23 tabs Allergies Allergy/AdvReac Type Severity Reaction Status Date / Time latex Allergy Intermediate Verified 05/27/23 08:33 cigarette smoke Allergy Mild Verified 05/27/23 08:33 adhesive Allergy Rash. Verified 05/27/23 08:33 codeine AdvReac Unknown Verified 05/27/23 08:33 pseudoephedrine AdvReac Unknown DIZZINESS; Verified 05/27/23 08:33 LIGHTHEADEDNESS ANIMAL DANDER Allergy Intermediate Uncoded 05/27/23 08:33 General Stated Complaint: Dizzy/Sync LAVERN: 3 Review of Systems Constitutional Constitutional: Denies chills, Denies fever(s), Denies headache(s), Reports malaise and Denies weakness Eyes Eyes: Denies blurry vision and Denies change in vision ENT Ears, Nose, Mouth, and Throat: Reports vertigo, Reports dizziness, Denies headache(s) and Denies neck pain Cardiovascular Cardiovascular: Denies chest pain, Denies syncope, Denies lightheadedness and Denies dyspnea Respiratory Respiratory: Denies cough and Denies dyspnea Gastrointestinal Gastrointestinal: Denies abdominal pain, Reports nausea and Denies vomiting Genitourinary Genitourinary: Denies dysuria Musculoskeletal Musculoskeletal: Denies neck pain Integumentary/Breasts Skin/Breast: Denies rash Neurologic Neurologic: Reports as per HPI, Denies confusion, Reports vertigo, Reports dizziness, Denies syncope, Denies headache(s) and Denies weakness Psychiatric Psychiatric: Denies confusion PFSH All Active Problems (Updated 05/27/23 @ 10:49 by Amilcar Delaney NP) Benign paroxysmal positional vertigo (Acute) Abrasion (Acute) Ankle swelling (Acute) Pain in left acromioclavicular joint (Acute) Rectal bleeding (Acute) Constipation (Acute) Diverticular disease of large intestine (Acute) blum Internal hemorrhoids with complication (Acute) Bleeding Left rotator cuff tear (Chronic) Tendinitis of long head of biceps brachii of left shoulder (Chronic) Bursitis of left shoulder (Chronic) Left shoulder pain (Chronic) Palpitations (Chronic) Osteoporosis (Chronic) On bisphosphonates since 2017 Anal skin tag (Acute) Hypertension (Chronic) Abnormal weight loss (Acute) Pulmonary nodule (Acute) An incidental nodule-left lower lobe, small, no exchange engineer 9-year interval last CT 2019 TRACEY treated with BiPAP (Acute) Internal hemorrhoids (Acute 07/02/15) Trochanteric bursitis, right hip (Chronic) Type 2 diabetes mellitus without complication, without long-term current use of insulin (Chronic 12/21/16) Hypothyroidism (Chronic 08/23/13) Gastroesophageal reflux disease (Chronic 08/23/13) Medical History Acute swimmer's ear of left side Asthma MILD INTERMITTENT Chest congestion Closed fracture of foot (08/23/13) Fever of unknown origin likely reaction to ibandronate (flu-like symptoms common) u/a negative here Generalized osteoarthritis (08/23/13) Imbalance Non-alcoholic fatty liver disease (08/23/13) Osteoporosis (12/21/16) first + bone density scan in 2017 Shoulder pain, right Surgical History Extraction of cataract B/L Fracture, Closed Treatment (~07/2004) ANKLE History of colonoscopy (~07/2019) Family History FAMILY HX Neoplasm BREAST/OVARIAN Mother , 60 Essential hypertension Heart disease Hyperlipidemia Neoplasm OVARIAN Cancer ovarian Father , 81 Essential hypertension Heart disease Hyperlipidemia Neoplasm LUNG Lung cancer Sister Essential hypertension Depression Hyperlipidemia Brother Depression Heart disease Hyperlipidemia Bladder cancer Grandfather Parkinson disease Grandmother Diabetes Heart disease Stroke Grandmother Diabetes Heart disease Social History Smoking/Tobacco Use Status: Never Second Hand Exposure: Yes (waitressed in smoking sect. of rest. for 35 years) Smoking risk assessment performed?: Yes Alcohol Intake: never Drug use: Never Substance use type: does not use Caregiver/Support person: No Household members: spouse Housing: house Communication Needs: Corrective Lenses Do you need help understanding health information?: Rarely Pets and animals: No Sexually active: No Do you think of yourself as: straight/heterosexual Current gender identity: female What is your relationship status?: How often do you talk on the phone with friends or family?: three or more times per week How often do you get together with friends or relatives?: three or more times per week How often do you attend lutheran or anabaptist services?: 4 or more times per year Do you belong to any clubs or organized social groups?: yes Panel score (0-1 are the most socially isolated patients): 4 What type of physical activity do you participate in: walking Duration: 30-45 minutes/day Frequency: daily Anne-Marie/Hinduism: Zoroastrianism Special anne-marie needs: No Seatbelt use: always Helmet use: Yes Helmet use: always Drive intox or ride w/intox driver starting gate: No Do you feel safe at home: Yes Do you feel safe in your relationship?: Yes Exam Const General: cooperative, healthy appearing, no acute distress and well groomed Nutritional Appearance: average body habitus Orientation: alert, awake and oriented x3 Limitations: mental status not altered HENWI Head: normal to inspection Ears: hearing grossly normal bilaterally and TM's normal bilaterally Mouth: oral mucosae normal and moist mucous membranes Throat: posterior oropharynx normal Eyes Visual Dias: normal visual dias by confrontation Alignment and Position: alignment normal Periorbital: periorbital findings normal Eyelids: eyelids normal Sclera: sclerae normal Cornea: corneas normal Pupils: PERRL EOM: EOM intact bilaterally and nystagmus (Horizontal with right lateral gaze) Neck Neck: normal visual inspection, full ROM and no meningeal signs Carotids: normal carotid upstroke and no bruits Chest Chest: normal inspection of the chest Resp Effort & Inspection: normal respiratory effort and able to speak in complete sentences Auscultation: clear to auscultation bilaterally Cardio Jugular venous pressure: no JVD Palpation: normal PMI Rate: regular rate Rhythm: regular rhythm Heart Sounds: S1 normal and S2 normal Bruits: no carotid bruits Pulses: radial pulses present bilaterally 2+ Neuro General: patient alert, patient awake, patient oriented x3, gait normal, tone normal, moves all extremities, CN's II-XI intact bilaterally and not confused Cranial Nerves: nystagmus (Horizontal with right lateral gaze) Cognition: normal cognition Speech: speech normal Motor: muscle tone normal throughout, strength 5/5 throughout, no pronator drift, no movement abnormalities noted and no fasciculations Sensory Exam: no sensory deficits noted Coordination: Romberg test normal and Does not sway with eyes open Course Vital Signs Vital signs: Vital Signs Temperature 36.4 C L 05/27/23 08:30 Pulse 68 05/27/23 08:30 Respiratory Rate 18 05/27/23 08:30 Blood Pressure 151/73 H 05/27/23 08:30 Pulse Oximetry 94 05/27/23 08:30 Temperature 36.4 C L 05/27/23 08:30 Temperature Source Skin 05/27/23 08:30 Pulse 68 05/27/23 08:30 Respiratory Rate 18 05/27/23 08:30 Respiratory Effort Normal 05/27/23 08:55 Blood Pressure 151/73 H 05/27/23 08:30 Blood Pressure Position Supine 05/27/23 08:30 Pulse Oximetry 94 05/27/23 08:30 Oxygen Delivery Method Room Air 05/27/23 08:30 Oxygen Flow Rate 0 05/27/23 08:30 Pain Level 0 05/27/23 08:30
[2023-05-27] MEDS: Meclizine 12.5 MG TAB PO (09:17)
[2023-05-27 09:20] LABS: Abs Immature Grans 0.02 10^3/uL (0.0-0.06); Absolute Basophil Count 0.04 10^3/uL (0.0-0.2); Absolute Eosinophil Count 0.15 10^3/uL (0.0-0.7); Absolute Lymphocyte Count 1.91 10^3/uL (1.2-3.4); Absolute Monocyte Count 0.42 10^3/uL (0.1-0.8); Absolute Neutrophil Count 2.84 10^3/uL (1.2-6.7); Basophils % 0.7; Eosinophils % 2.8; HCT 38.9 % (36.0-46.0); HGB 12.9 g/dL (11.2-15.7); Immature Grans % 0.4; Lymphocytes % 35.5; MCH 29.9 pg (27.0-33.0); MCHC 33.2 % (32.0-36.0); MCV 90 fL (80-95); MPV 11.1 fL (8.0-11.0); Monocytes % 7.8; Neutrophils % 52.8; Platelet Count 158 10^3/uL (130-400); RBC 4.31 10^6/uL (3.93-5.22); RDW 12.9 % (11.7-14.6); RDW-SD 42.9 fL; WBC 5.38 10^3/uL (4.4-10.8)
[2023-05-27 09:43] LABS: ALT 30 U/L (14-59); AST 25 U/L (15-37); Albumin 3.3 g/dL (3.4-5.0); Alkaline Phosphatase 70 U/L (46-116); Anion Gap 7.6 mmol/L (3-11); BUN 19 mg/dL (7-18); Bilirubin, Total 0.4 mg/dL (0.2-1.0); CO2 28.4 mmol/L (21.0-32.0); CREATININE 0.7 mg/dL (0.55-1.02); Calcium 8.5 mg/dL (8.5-10.1); Chloride 104 mmol/L (98-107); Glucose 183 mg/dL (74-106); Potassium 3.9 mmol/L (3.5-5.1); Sodium 140 mmol/L (136-145); TSH (W/Ref FT4) 1.56 uIU/mL (0.36-3.74); Total Protein 6.9 g/dL (6.4-8.2); Troponin I < 50 ng/L (<or=60)
[2023-05-27 10:30] LABS: Bilirubin Negative (Negative); Blood Negative (Negative); Clarity Cloudy (Clear); Glucose Negative (Negative); Ketones Negative (Negative); Leukocyte Esterase Negative (Negative); Nitrite Negative (Negative); Urobilinogen 0.2 mg/dL (Up to 0.2)
== END 2023-05-27 11:40 | disposition home or self-care (01) ==
PROVIDERS: Emergency Provider Nurse Practitioner Family; PCP Family Medicine
DX: R42 Dizziness and giddiness (principal)
CPT/HCPCS: 36415; 80053; 93005; 99283; 81003; 83735; 84443; 84484; 85025; 93010; 99284

== ENCOUNTER → 2023-05-31 10:13 | Outpatient (BNVA) | payer MEDICARE, SELFPAY | PROVIDERS: PCP Family Medicine; Referring Provider Family Medicine; Visit Provider Student in an Organized Health Care Education/Training Program | DX: M25.512 Pain in left shoulder (principal); M75.102 Unspecified rotator cuff tear or rupture of left shoulder, not specified as traumatic; M75.22 Bicipital tendinitis, left shoulder; M75.52 Bursitis of left shoulder | CPT/HCPCS: 99213 ==

== ENCOUNTER 2023-06-23 04:01 | Outpatient (CLI) | payer MEDICARE, SELFPAY ==
[2023-06-23 12:44] LABS: Hemoglobin A1C 6.4 % (<5.7)
[2023-06-23 13:14] LABS: TSH (W/Ref FT4) 1.27 uIU/mL (0.36-3.74)
== END 2023-06-23 04:02 | disposition home or self-care (01) ==
LOC: LOS 04:01
PROVIDERS: PCP Family Medicine; Visit Provider Family Medicine
DX: E11.51 Type 2 diabetes mellitus with diabetic peripheral angiopathy without gangrene (principal); I70.209 Unspecified atherosclerosis of native arteries of extremities, unspecified extremity; E03.9 Hypothyroidism, unspecified
CPT/HCPCS: 36415; 83036; 84443

== ENCOUNTER 2023-06-28 20:18 | Outpatient (REF) | payer MEDICARE, SELFPAY ==
[2023-06-28 13:32] LABS: COMMENT (LAB VIEW ONLY) 13.83 mg/dL
== END 2023-06-28 20:19 | disposition home or self-care (01) ==
LOC: LBN 20:18
PROVIDERS: PCP Family Medicine; Visit Provider Family Medicine
DX: E11.9 Type 2 diabetes mellitus without complications (principal)
CPT/HCPCS: 82043; 82570

== ENCOUNTER → 2023-07-19 16:20 | Outpatient (CLI) | payer MEDICARE, SELFPAY ==
--- NOTE | 2023-07-19 14:15 | DI.RAD_ITS ---
Exam(s) XR THUMB RT EXAM: XR THUMB RT CLINICAL HISTORY: PAIN IN RT FINGERS-[id number]. TECHNIQUE: 2D digital imaging was performed of the right finger. Three views were obtained. PA/AP, oblique, and lateral views were obtained. COMPARISON: No exams were available for comparison FINDINGS: BONES: No acute fracture is present. There is a lucency seen in the head of the middle phalanx of the right middle finger. There are degenerative changes seen at the DIP joint. JOINTS: No dislocation present. There are degenerative changes seen at the DIP joint of the thumb. There is a well corticated osseous density adjacent to the DIP joint which appears old. SOFT TISSUE: Normal. IMPRESSION: 1. No evidence of acute fracture, dislocation, or subluxation. 2. Degenerative changes in the thumb. 3. Lucency seen in the head of the middle phalanx of the middle finger. This is incompletely evaluat ed on this examination. A complete right middle finger examination is recommended for further evalua tion. Unexpected findings DATA REPOSITORY: RADIATION DOSE DELIVERED:
== END ==
PROVIDERS: PCP Family Medicine; Visit Provider Nurse Practitioner Family
DX: M79.644 Pain in right finger(s) (principal)
CPT/HCPCS: 73140

== ENCOUNTER → 2023-07-26 11:07 | Outpatient (BNVA) | payer MEDICARE, SELFPAY | PROVIDERS: PCP Family Medicine; Referring Provider Family Medicine; Visit Provider Student in an Organized Health Care Education/Training Program | DX: M25.512 Pain in left shoulder (principal); M75.102 Unspecified rotator cuff tear or rupture of left shoulder, not specified as traumatic; M75.22 Bicipital tendinitis, left shoulder; M75.52 Bursitis of left shoulder | CPT/HCPCS: 99213 ==

== ENCOUNTER 2023-08-16 15:27 | Outpatient (REF) | payer MEDICARE, SELFPAY ==
[2023-08-16 16:18] LABS: Bilirubin Negative (Negative); Blood Negative (Negative); Clarity Clear (Clear); Glucose Negative (Negative); Ketones Negative (Negative); Leukocyte Esterase Negative (Negative); Nitrite Negative (Negative); Specific Gravity 1.025 (1.005-1.025); Urobilinogen 0.2 mg/dL (Up to 0.2)
== END 2023-08-16 15:28 | disposition home or self-care (01) ==
LOC: LBN 15:27
PROVIDERS: PCP Family Medicine; Visit Provider Family Medicine
DX: R35.0 Frequency of micturition (principal)
CPT/HCPCS: 81003

== ENCOUNTER → 2023-09-05 13:09 | Outpatient (BNVA) | payer MEDICARE, SELFPAY | PROVIDERS: PCP Family Medicine; Referring Provider Family Medicine; Visit Provider Surgery | DX: K64.8 Other hemorrhoids (principal) | CPT/HCPCS: 99214 ==

== ENCOUNTER → 2023-09-13 13:09 | Outpatient (BNVA) | payer MEDICARE, SELFPAY | PROVIDERS: PCP Family Medicine; Referring Provider Family Medicine; Visit Provider Surgery | DX: K64.8 Other hemorrhoids (principal) | CPT/HCPCS: 46600; 99213 ==

== ENCOUNTER → 2023-11-14 14:49 | Outpatient (BNVA) | payer MEDICARE, SELFPAY | PROVIDERS: PCP Family Medicine; Referring Provider Family Medicine; Visit Provider Surgery | DX: K64.8 Other hemorrhoids (principal); K64.4 Residual hemorrhoidal skin tags | CPT/HCPCS: 99213 ==

== ENCOUNTER → 2024-01-12 12:56 | Outpatient (BNVA) | payer MEDICARE, SELFPAY | PROVIDERS: PCP Family Medicine; Referring Provider Family Medicine; Visit Provider Surgery | DX: K64.8 Other hemorrhoids (principal) | CPT/HCPCS: 99213 ==

== ENCOUNTER → 2024-02-22 08:27 | Outpatient (BNVA) | payer MEDICARE, SELFPAY | PROVIDERS: PCP Family Medicine; Referring Provider Family Medicine; Visit Provider Podiatrist | DX: E11.8 Type 2 diabetes mellitus with unspecified complications (principal); L84 Corns and callosities; M20.42 Other hammer toe(s) (acquired), left foot; R09.89 Other specified symptoms and signs involving the circulatory and respiratory systems; L65.9 Nonscarring hair loss, unspecified; M20.41 Other hammer toe(s) (acquired), right foot; R20.2 Paresthesia of skin; M79.672 Pain in left foot; L60.3 Nail dystrophy | CPT/HCPCS: 11055; 99203; 99214 ==

== ENCOUNTER → 2024-03-26 10:25 | Outpatient (BNVA) | payer MEDICARE, SELFPAY | PROVIDERS: PCP Family Medicine; Referring Provider Family Medicine; Visit Provider Podiatrist | DX: E11.621 Type 2 diabetes mellitus with foot ulcer (principal); L84 Corns and callosities; M20.42 Other hammer toe(s) (acquired), left foot; L97.529 Non-pressure chronic ulcer of other part of left foot with unspecified severity | CPT/HCPCS: 99213 ==

== ENCOUNTER 2024-10-09 16:30 | Outpatient (CLI) | payer MEDICARE, SELFPAY ==
[2024-10-09 15:23] LABS: Hemoglobin A1C 6.3 % (<5.7)
[2024-10-09 15:39] LABS: Anion Gap 2.9 mmol/L (3-11); BUN 18 mg/dL (7-18); CO2 33.1 mmol/L (21.0-32.0); CREATININE 0.9 mg/dL (0.55-1.02); Chloride 105 mmol/L (98-107); Estimated GFR 66.26 (mL/min/1.73m2); Glucose 132 mg/dL (74-106); Potassium 3.9 mmol/L (3.5-5.1); Sodium 141 mmol/L (136-145); TSH (W/Ref FT4) 1.07 uIU/mL (0.36-3.74)
== END 2024-10-09 16:31 | disposition home or self-care (01) ==
LOC: LBO 16:30
PROVIDERS: PCP Family Medicine; Visit Provider Family Medicine
DX: E03.9 Hypothyroidism, unspecified (principal); E87.1 Hypo-osmolality and hyponatremia; R73.9 Hyperglycemia, unspecified
CPT/HCPCS: 36415; 80048; 83036; 84443

== ENCOUNTER 2024-11-06 21:04 | Outpatient (REF) | payer MEDICARE, SELFPAY ==
[2024-11-06 21:34] LABS: Bilirubin Negative (Negative); Blood Trace-intact (Negative); Clarity Clear (Clear); Glucose Negative (Negative); Ketones Trace mg/dL (Negative); Leukocyte Esterase Small (Negative); Nitrite Negative (Negative); Urobilinogen 0.2 mg/dL (Up to 0.2)
[2024-11-06 21:35] LABS: Bacteria Negative HPF (Negative); C & S Indicated? C&S Done As Ordered; Crystals Negative HPF (Negative); Epithelial Cells Negative HPF (Negative); Mucus Negative (Negative); RBC 0-2 HPF (0-2)
== END 2024-11-06 21:05 | disposition home or self-care (01) ==
LOC: LBN 21:04
PROVIDERS: PCP Family Medicine; Visit Provider Nurse Practitioner Family
DX: R30.0 Dysuria (principal)
CPT/HCPCS: 87077; 81003; 81015; 87086; 87186

== ENCOUNTER 2024-12-20 01:19 | Outpatient (CLI) | payer MEDICARE, SELFPAY ==
--- NOTE | 2024-12-20 07:30 | DI.DEXA_ITS ---
Exam(s) XR DEXA BONE DENSITY W/WO ALESSANDRO EXAM: XR DEXA BONE DENSITY W/WO ALESSANDRO CLINICAL HISTORY: osteoporosis,screening in postmenopausal woman,z78.0 TECHNIQUE: COMPARISON: DX DEXA BONE DENSITY WITH ALESSANDRO from 12/21/2016 FINDINGS: Lateral Spine Image: Unremarkable. No compression deformities identified. Left hip: Total T-Score: -1.4. Compares to -1.5 on the prior examination. Total Z-Score: 0.4 T- and Z-scores: The total T-score is consistent with osteopenia. There is osteoporosis in the femor al neck with a T-score of -2.7 and Z-score of -0.6. Lumbar Spine: Total T-Score: -1.6. This compares to -2.4 on the prior examination. Total Z-Score: 0.8 T- and Z-scores: Findings are consistent with osteopenia. There is no evidence of osteoporosis in th e lumbar spine. IMPRESSION: Osteoporosis is seen in the left femoral neck with a T-score of -2.7.
== END 2024-12-20 01:39 ==
LOC: DI 01:19
PROVIDERS: PCP Family Medicine; Visit Provider Family Medicine
DX: Z78.0 Asymptomatic menopausal state (principal); Z13.820 Encounter for screening for osteoporosis
CPT/HCPCS: 77080

== ENCOUNTER 2025-05-09 09:01 | Outpatient (CLI) | payer MEDICARE, SELFPAY ==
[2025-05-09 12:37] LABS: Abs Immature Grans 0.02 10^3/uL (0.0-0.06); HCT 37.1 % (36.0-46.0); HGB 12.0 g/dL (11.2-15.7); Immature Grans % 0.3 %; MCH 29.3 pg (27.0-33.0); MCHC 32.3 % (32.0-36.0); MCV 91 fL (80-95); MPV 10.9 fL (8.0-11.0); Platelet Count 192 10^3/uL (130-400); RBC 4.10 10^6/uL (3.93-5.22); RDW 13.3 % (11.7-14.6); RDW-SD 44.6 fL; WBC 6.35 10^3/uL (4.4-10.8)
[2025-05-09 12:57] LABS: Hemoglobin A1C 6.3 % (<5.7)
[2025-05-09 13:15] LABS: ALT 29 U/L (14-59); AST 26 U/L (15-37); Albumin 3.4 g/dL (3.4-5.0); Alkaline Phosphatase 67 U/L (46-116); Anion Gap 3.4 mmol/L (3-11); BUN 21 mg/dL (7-18); Bilirubin, Total 0.4 mg/dL (0.2-1.0); CO2 30.6 mmol/L (21.0-32.0); Calcium 8.8 mg/dL (8.5-10.1); Chloride 104 mmol/L (98-107); Estimated GFR 89.58 (mL/min/1.73m2); Glucose 88 mg/dL (74-106); Potassium 4.3 mmol/L (3.5-5.1); Sodium 138 mmol/L (136-145); TSH (W/Ref FT4) 1.16 uIU/mL (0.36-3.74); Total Protein 6.9 g/dL (6.4-8.2); Vitamin D 25 Total 92 ng/mL (30-100)
== END 2025-05-09 09:02 | disposition home or self-care (01) ==
LOC: LOS 09:03
PROVIDERS: PCP Family Medicine; Visit Provider Physician Assistant
DX: M81.0 Age-related osteoporosis without current pathological fracture (principal)
CPT/HCPCS: 36415; 80053; 82306; 83036; 84443; 85025

== ENCOUNTER 2025-05-09 10:15 | Outpatient (CLI) | payer MEDICARE, SELFPAY ==
--- NOTE | 2025-05-09 11:20 | DI.RAD_ITS ---
Exam(s) XR FOOT LT COMPLETE EXAM: XR FOOT LT COMPLETE CLINICAL HISTORY: foot pain, LEFT M79.672. TECHNIQUE: 2D digital imaging was performed of the left foot. Three images were obtained. AP, oblique and lateral views were obtained. COMPARISON: No exams were available for comparison FINDINGS: BONES: No acute fracture is present. No bony destructive lesion is seen. There is a small enthesophyte at the posterior calcaneus. There is a small plantar calcaneal spur. Postsurgical changes are seen in the distal fibula and medial malleolus. The visualized portions of the orthopedic hardware appear unremarkable. JOINTS: No dislocation present. There are degenerative changes seen at the 1st MTP joint characterized by joint space narrowing. The joint spaces are otherwise well maintained. SOFT TISSUE: Normal. IMPRESSION: 1. Mild degenerative changes of the 1st MTP joint. 2. Calcaneal spurs. 3. Postsurgical changes seen in the distal fibula and medial malleolus. DATA REPOSITORY: RADIATION DOSE DELIVERED:
== END 2025-05-09 10:35 ==
LOC: DI 10:16
PROVIDERS: PCP Family Medicine; Visit Provider Physician Assistant
DX: M79.672 Pain in left foot (principal); M77.32 Calcaneal spur, left foot; Z98.890 Other specified postprocedural states
CPT/HCPCS: 73630

== ENCOUNTER 2025-06-12 08:28 | Outpatient (CLI) | payer MEDICARE, SELFPAY ==
--- NOTE | 2025-06-12 07:15 | DI.RAD_ITS ---
Exam(s) XR LUMBAR SPINE COMPLETE EXAM: XR LUMBAR SPINE COMPLETE CLINICAL HISTORY: acute Low back pain with history of osteoporosis,m54.50. TECHNIQUE: 2D digital imaging was performed. Five views. COMPARISON: CR XR DEXA BONE DENSITY W/WO ALESSANDRO from 12/20/2024 FINDINGS: BONES: No fracture or destructive lesion. Vertebral body heights are maintained. There are small endplate osteophytes. There are facet degenerative changes from L3-4 through L5-S1. DISKS: Intervertebral disc spaces are maintained. ALIGNMENT: Lumbar spinal alignment is within normal limits. SOFT TISSUE: Normal. IMPRESSION: Degenerative changes. No acute abnormality. DATA REPOSITORY: RADIATION DOSE DELIVERED:
== END 2025-06-12 08:48 ==
LOC: DI 08:28
PROVIDERS: PCP Family Medicine; Visit Provider Physician Assistant
DX: M54.50 Low back pain, unspecified (principal)
CPT/HCPCS: 72110